=== PATIENT | male | born 1935 | race Caucasian/White ===

== ENCOUNTER 2020-07-19 11:38 | Outpatient (REF) | payer MEDICARE, BC, SELFPAY | END 2020-07-19 11:39 | disposition home or self-care (01) | LOC: HO.LAB 11:38 | PROVIDERS: PCP Family Medicine; Visit Provider Internal Medicine | DX: Z20.828 Contact with and (suspected) exposure to other viral communicable diseases (principal) | CPT/HCPCS: 87635 ==

== ENCOUNTER 2021-01-09 08:04 | Outpatient (REF) | payer MEDICARE, BC, SELFPAY ==
[2021-01-09 10:32] LABS: Alanine Aminotransferase 18 U/L (0-40); Anion Gap 14 (12-20); Blood Urea Nitrogen 20 mg/dL (9-16); Carbon Dioxide 23 mmol/L (22-29); Chloride 112 mmol/L (96-108); Estimated Glomerular Filt Rate 50; Sodium 145 mmol/L (135-145)
== END 2021-01-09 08:05 | disposition home or self-care (01) ==
LOC: HO.10HDL 08:04
PROVIDERS: Internal Medicine; Visit Provider Family Medicine
DX: I10 Essential (primary) hypertension (principal); E78.00 Pure hypercholesterolemia, unspecified; Z79.899 Other long term (current) drug therapy
CPT/HCPCS: 36415; 80051; 82550; 82565; 84460; 84520

== ENCOUNTER 2021-05-18 | Outpatient (REF) | payer MEDICARE, BC, SELFPAY ==
[2021-05-22 14:57] LABS: OBS Date 2 NO DATE GIVEN; OBS Date 3 NO DATE GIVEN; OBS Int Ctl Valid YES; OBS1 NEGATIVE (NEGATIVE); OBS2 NEGATIVE (NEGATIVE); OBS3 NEGATIVE (NEGATIVE)
== END 2021-05-18 00:01 | disposition home or self-care (01) ==
LOC: HO.LNP
PROVIDERS: Visit Provider Family Medicine
DX: K92.1 Melena (principal)
CPT/HCPCS: 82270

== ENCOUNTER 2021-05-22 14:42 | Outpatient (REF) | payer MEDICARE, BC, SELFPAY | END 2021-05-22 14:43 | disposition home or self-care (01) | LOC: HO.LNP 14:42 | PROVIDERS: Visit Provider Family Medicine | DX: Z13.89 Encounter for screening for other disorder (principal) ==

== ENCOUNTER 2021-06-16 13:56 | Outpatient (REF) | payer MEDICARE, BC, SELFPAY ==
--- NOTE | ~2021-06-16 | XR_ITS ---
EXAMINATION: XR ABDOMEN COMPLETE CLINICAL INDICATION: Flat and upright epigastric pain. COMPARISON: None TECHNIQUE: 2 views of the abdomen. FINDINGS: There is scattered gas seen throughout the colon with prominent small bowel loops air-fluid levels in the left upper epigastric region. There is no organomegaly. No bony abnormality seen. There is evidence of previous cholecystectomy. XR/XR abdomen min 2V IMPRESSION: Mild prominence of small bowel loops in left epigastric region without distention. It is nonspecific. The colon is unremarkable. There is no free air.
[2021-06-16 14:32] LABS: Basophils Percent Auto 0.2 % (0-2); Eosinophils Percent Auto 0.2 % (0-4); Hemoglobin 13.8 g/dl (14.0-18.0); Imm Gran Abs Auto 0.02 X10*3/uL (0.00-0.03); Imm Gran Pct Auto 0.2 % (0.0-0.4); MANUAL DIFF FLAG SCAN; PLT CLUMP 1; Red Cell Distribution Width 12.5 % (11.0-16.0); SCAN SMEAR FLAG 1
[2021-06-16 14:34] LABS: Hematocrit 46.3 % (42-52); Lymphocytes Percent Auto 7.6 % (20-40); Mean Corpuscular HGB Conc 29.8 g/dl (31.0-36.0); Mean Corpuscular Hemoglobin 35.5 pg (27.0-33.0); Mean Platelet Volume 10.7 fL (9.4-12.4); Monocytes Absolute Auto 1.9 X10*3/uL (0.1-1.2); Monocytes Percent Auto 14.9 % (2-11); Neutrophils Absolute Auto 9.7 X10*3/uL (2.0-8.3); Neutrophils Percent Auto 76.9 % (45-73); Platelet Count 145 X10*3/uL (160-400); Red Blood Count 3.89 X10*6/uL (4.60-5.80); White Blood Count 12.6 X10*3/uL (4.8-10.8)
[2021-06-16 15:12] LABS: SLIDE REVIEW VERIFIED
== END 2021-06-16 13:57 | disposition home or self-care (01) ==
LOC: HO.LAB 13:56
PROVIDERS: PCP Family Medicine; Visit Provider Family Medicine
DX: R10.13 Epigastric pain (principal); K21.9 Gastro-esophageal reflux disease without esophagitis
CPT/HCPCS: 36415; 74019; 85025

== ENCOUNTER 2021-06-20 10:55 | Outpatient (REF) | payer MEDICARE, BC, SELFPAY ==
--- NOTE | ~2021-06-20 | FL_ITS ---
EXAMINATION: XR GI SERIES CLINICAL INFORMATION: Gastroesophageal reflux and epigastric pain COMPARISON: Previous KUB 06/16/[address] IVP most recent February 2018 TECHNIQUE: Upper GI was performed using thin and thick barium and effervescent granules. FINDINGS: There is abnormal orientation of the stomach likely related to previous surgery/reduction of the large gastric hernia. No ulcer, mass, stricture or fold thickening is seen. There is severe gastroesophageal reflux. There may be a small paraesophageal hernia. FLUOROSCOPY TIME: 2 minutes DOSE AREA PRODUCT: 18 yusuf per centimeter squared. 29 saved fluoroscopic images. FL/FL upper GI series IMPRESSION: Severe gastroesophageal reflux. Question small paraesophageal hernia. Abnormal orientation of the stomach likely related to previous surgery.
== END 2021-06-20 10:56 | disposition home or self-care (01) ==
LOC: HO.XRAY 10:55
PROVIDERS: PCP Family Medicine; Visit Provider Family Medicine
DX: R10.13 Epigastric pain (principal); K21.9 Gastro-esophageal reflux disease without esophagitis
CPT/HCPCS: 74240

== ENCOUNTER 2021-07-25 09:54 | Outpatient (REF) | payer MEDICARE, BC, SELFPAY ==
[2021-07-25 10:48] LABS: Alanine Aminotransferase 18 U/L (0-40); Anion Gap 8 (12-20); Blood Urea Nitrogen 20 mg/dL (9-16); Carbon Dioxide 28 mmol/L (22-29); Chloride 111 mmol/L (96-108); Estimated Glomerular Filt Rate 45; Potassium 4.1 mmol/L (3.3-5.1); Sodium 143 mmol/L (135-145)
[2021-07-25 10:53] LABS: Uric Acid 6.6 mg/dL (3.4-7.0)
== END 2021-07-25 09:55 | disposition home or self-care (01) ==
LOC: HO.LAB 09:54
PROVIDERS: PCP Family Medicine; Visit Provider Family Medicine
DX: I10 Essential (primary) hypertension (principal); E78.00 Pure hypercholesterolemia, unspecified; M10.9 Gout, unspecified; Z79.899 Other long term (current) drug therapy
CPT/HCPCS: 36415; 80051; 82550; 82565; 84460; 84520; 84550

== ENCOUNTER 2021-11-20 09:39 | Outpatient (REF) | payer MEDICARE, BC, SELFPAY ==
[2021-11-20 10:06] LABS: MANUAL DIFF FLAG NO
[2021-11-20 10:14] LABS: Basophils Percent Auto 0.4 % (0-2); Eosinophils Absolute Auto 0.1 X10*3/uL (0.0-0.4); Eosinophils Percent Auto 2.4 % (0-4); Hematocrit 42.4 % (42.0-52.0); Hemoglobin 14.1 g/dl (14.0-18.0); Imm Gran Abs Auto 0.02 X10*3/uL (0.00-0.03); Imm Gran Pct Auto 0.4 % (0.0-0.4); Lymphocytes Absolute Auto 1.2 X10*3/uL (1.2-4.9); Lymphocytes Percent Auto 22.5 % (20-40); Mean Corpuscular HGB Conc 33.3 g/dl (31.0-36.0); Mean Corpuscular Hemoglobin 32.4 pg (27.0-33.0); Mean Corpuscular Volume 97.5 fL (80.0-98.0); Mean Platelet Volume 11.4 fL (9.4-12.4); Monocytes Absolute Auto 0.6 X10*3/uL (0.1-1.2); Monocytes Percent Auto 11.6 % (2-11); Neutrophils Absolute Auto 3.2 x10*3/uL (2.0-8.3); Neutrophils Percent Auto 62.7 % (45-73); Platelet Count 173 X10*3/uL (160-400); Red Blood Count 4.35 X10*6/uL (4.60-5.80); Red Cell Distribution Width 12.4 % (11.0-16.0); White Blood Count 5.1 X10*3/uL (4.8-10.8)
[2021-11-20 10:54] LABS: Erythrocyte Sedimentation Rate 2 MM/HR (0-15)
[2021-11-20 11:06] LABS: Alanine Aminotransferase 29 U/L (0-40); Anion Gap 11 (12-20); Aspartate Amino Transferase 35 U/L (5-37); Blood Urea Nitrogen 19 mg/dL (9-16); Carbon Dioxide 24 mmol/L (22-29); Chloride 112 mmol/L (96-108); Estimated Glomerular Filt Rate 55; Potassium 4.4 mmol/L (3.3-5.1); Sodium 143 mmol/L (135-145)
[2021-11-20 11:41] LABS: Folate 9.2 ng/mL (> or = 4.0); Vitamin B12 384 pg/mL (200-900)
== END 2021-11-20 09:40 | disposition home or self-care (01) ==
LOC: HO.10HDL 09:39
PROVIDERS: Visit Provider Family Medicine
DX: I10 Essential (primary) hypertension (principal); D45 Polycythemia vera; E78.00 Pure hypercholesterolemia, unspecified; Z79.899 Other long term (current) drug therapy
CPT/HCPCS: 36415; 80051; 82565; 82607; 82746; 84450; 84460; 84520; 85025; 85652

== ENCOUNTER 2022-05-01 10:36 | Outpatient (REF) | payer MEDICARE, BC, SELFPAY ==
[2022-05-01 12:13] LABS: Alanine Aminotransferase 17 U/L (0-40); Anion Gap 14 (12-20); Aspartate Amino Transferase 22 U/L (5-37); Blood Urea Nitrogen 19 mg/dL (9-16); Carbon Dioxide 24 mmol/L (22-29); Chloride 109 mmol/L (96-108); Estimated Glomerular Filt Rate 53; Potassium 4.5 mmol/L (3.3-5.1); Sodium 142 mmol/L (135-145)
== END 2022-05-01 10:37 | disposition home or self-care (01) ==
LOC: HO.LAB 10:36
PROVIDERS: PCP Family Medicine; Visit Provider Family Medicine
DX: I10 Essential (primary) hypertension (principal); E78.00 Pure hypercholesterolemia, unspecified; Z79.899 Other long term (current) drug therapy
CPT/HCPCS: 36415; 80051; 82550; 82565; 84450; 84460; 84520

== ENCOUNTER 2022-10-09 10:55 | Outpatient (REF) | payer MEDICARE, BC, SELFPAY ==
[2022-10-09 11:17] LABS: MANUAL DIFF FLAG NO
[2022-10-09 12:00] LABS: Basophils Percent Auto 0.7 % (0-2); Eosinophils Absolute Auto 0.2 X10*3/uL (0.0-0.4); Eosinophils Percent Auto 2.6 % (0-4); Hematocrit 41.2 % (42.0-52.0); Hemoglobin 14.1 g/dl (14.0-18.0); Imm Gran Abs Auto 0.01 X10*3/uL (0.00-0.03); Imm Gran Pct Auto 0.2 % (0.0-0.4); Lymphocytes Absolute Auto 1.2 X10*3/uL (1.2-4.9); Lymphocytes Percent Auto 20.9 % (20-40); Mean Corpuscular HGB Conc 34.2 g/dl (31.0-36.0); Mean Corpuscular Hemoglobin 33.4 pg (27.0-33.0); Mean Corpuscular Volume 97.6 fL (80.0-98.0); Mean Platelet Volume 11.2 fL (9.4-12.4); Monocytes Absolute Auto 0.9 X10*3/uL (0.1-1.2); Monocytes Percent Auto 15.3 % (2-11); Neutrophils Absolute Auto 3.6 x10*3/uL (2.0-8.3); Neutrophils Percent Auto 60.3 % (45-73); Platelet Count 174 X10*3/uL (160-400); Red Blood Count 4.22 X10*6/uL (4.60-5.80); Red Cell Distribution Width 12.4 % (11.0-16.0); White Blood Count 5.9 X10*3/uL (4.8-10.8)
[2022-10-09 14:18] LABS: Alanine Aminotransferase 14 U/L (0-40); Anion Gap 11 (12-20); Aspartate Amino Transferase 21 U/L (5-37); Blood Urea Nitrogen 16 mg/dL (9-16); Carbon Dioxide 25 mmol/L (22-29); Chloride 111 mmol/L (96-108); Estimated Glomerular Filt Rate 45; Potassium 4.2 mmol/L (3.3-5.1); Sodium 143 mmol/L (135-145)
== END 2022-10-09 10:56 | disposition home or self-care (01) ==
LOC: HO.LAB 10:55
PROVIDERS: PCP Family Medicine; Visit Provider Family Medicine
DX: Z13.89 Encounter for screening for other disorder (principal)
CPT/HCPCS: 36415; 80051; 82550; 82565; 84450; 84460; 84520; 85025

== ENCOUNTER 2023-04-03 12:11 | Outpatient (REF) | payer MEDICARE, BC, SELFPAY ==
[2023-04-03 14:15] LABS: Alanine Aminotransferase 16 U/L (0-40); Anion Gap 12 (12-20); Aspartate Amino Transferase 21 U/L (5-37); Blood Urea Nitrogen 25 mg/dL (9-16); Carbon Dioxide 22 mmol/L (22-29); Chloride 113 mmol/L (96-108); Estimated Glomerular Filt Rate 52; Potassium 4.1 mmol/L (3.3-5.1); Sodium 143 mmol/L (135-145)
== END 2023-04-03 12:12 | disposition home or self-care (01) ==
LOC: HO.LAB 12:11
PROVIDERS: PCP Family Medicine; Visit Provider Family Medicine
DX: I10 Essential (primary) hypertension (principal); E78.00 Pure hypercholesterolemia, unspecified; Z79.899 Other long term (current) drug therapy
CPT/HCPCS: 36415; 80051; 82550; 82565; 84450; 84460; 84520

== ENCOUNTER 2023-08-01 07:12 | Outpatient (REF) | payer MEDICARE, BC, SELFPAY ==
[2023-08-01 08:38] LABS: Cholesterol 134 mg/dL (<200); Glucose Fasting 111 mg/dL (60-99); HDL Cholesterol 42 mg/dL (>40); LDL Cholesterol Calculated 76 mg/dL (<100); Triglycerides 83 mg/dL (<150)
[2023-08-01 09:02] LABS: Prostate Specific Antigen 1.92 ng/mL (<0.05-4.0)
== END 2023-08-01 07:13 | disposition home or self-care (01) ==
LOC: HO.LAB 07:12
PROVIDERS: PCP Family Medicine; Visit Provider Family Medicine
DX: E78.00 Pure hypercholesterolemia, unspecified (principal); R73.9 Hyperglycemia, unspecified; N40.0 Benign prostatic hyperplasia without lower urinary tract symptoms; Z12.5 Encounter for screening for malignant neoplasm of prostate
CPT/HCPCS: 36415; 80061; 82947; 84153

== ENCOUNTER 2023-12-04 07:33 | Outpatient (REF) | payer MEDICARE, BC, SELFPAY ==
[2023-12-04 08:02] LABS: Estimated Average Glucose 111 mg/dL; Hemoglobin A1c % 5.5 % (<6.0)
[2023-12-04 08:23] LABS: Alanine Aminotransferase 24 U/L (0-40); Anion Gap 13 (12-20); Aspartate Amino Transferase 22 U/L (5-37); Blood Urea Nitrogen 21 mg/dL (9-16); Carbon Dioxide 28 mmol/L (22-29); Chloride 108 mmol/L (96-108); Estimated Glomerular Filt Rate 49; Glucose Fasting 96 mg/dL (60-99); Sodium 145 mmol/L (135-145)
== END 2023-12-04 07:34 | disposition home or self-care (01) ==
LOC: HO.LAB 07:33
PROVIDERS: PCP Family Medicine; Visit Provider Family Medicine
DX: I10 Essential (primary) hypertension (principal); E78.00 Pure hypercholesterolemia, unspecified; R73.9 Hyperglycemia, unspecified; Z79.899 Other long term (current) drug therapy
CPT/HCPCS: 36415; 80051; 82550; 82565; 82947; 83036; 84450; 84460; 84520

== ENCOUNTER 2024-06-12 13:08 | Outpatient (REF) | payer MEDICARE, BC, SELFPAY ==
[2024-06-12 14:29] LABS: Anion Gap 9 (12-20); Blood Urea Nitrogen 25 mg/dL (9-16); Carbon Dioxide 27 mmol/L (22-29); Chloride 111 mmol/L (96-108); Estimated Glomerular Filt Rate 43; Magnesium 2.3 mg/dL (1.6-2.6); Sodium 143 mmol/L (135-145)
== END 2024-06-12 13:09 | disposition home or self-care (01) ==
LOC: HO.LAB 13:08
PROVIDERS: PCP Family Medicine; Visit Provider Family Medicine
DX: I10 Essential (primary) hypertension (principal)
CPT/HCPCS: 36415; 80051; 82565; 83735; 84520

== ENCOUNTER 2025-01-08 13:06 | Outpatient (REF) | payer MEDICARE, BC, SELFPAY ==
--- OUTSIDE RECORDS SUMMARY | 2025-01-08 13:38 | XMS_ITS ---
Author Organization [facility] [place] Address [address] [place] [address] Care Team Providers Care Civil Drafting Technician Name Role Phone Eric Mohan MD Primary Care Provider Adam Daugherty [phone] REASON FOR VISIT Skin problem Medications Medication SIG (Take, Route, Frequency, Duration) Notes Start Date End Date Status amLODIPine Besylate 2.5 MG TAKE 1 TABLET BY MOUTH EVERYDAY AT BEDTIME Oral for 90 Days Active Pravastatin Sodium 20 MG Oral for 90 Days Active Atenolol 25 MG TAKE 1 TABLET BY GEMA TH EVERY DAY DIRECTED Oral for 90 Days Active Social History Tobacco Use: Social History Observation Description Date Details (start date - stop date) Former Smoker NA - NA Tobacco Use/Smoking Question Answer Notes Are you a: former smoker Additional Findings: Tobacco Non-User Current no n-smoker Alcohol Screen Question Answer Notes Did you have a drink containing alcohol in the p ast year? No Points 0 Interpretation Negative Problems Problem Type SNOMED Code ICD Code Onset Dates Problem Status W/U Status Risk Notes Problem Acquired hallux valgus (88643934) Hallux valgus (acquired), left foot (M20.12) Active confirmed Problem Acquired hallux valgus (69423591) Hallux valgus (acquired), right foot (M20.11) Active confirmed Vital Signs Height 5 ft 11 in in 01/08/2024 Weight 174 lbs lbs 01/08/2024 BMI 24.27 kg/m2 01/08/2024 Encounters Encounter Location Date Provider Diagnosis [facility] [address] [place] [address] 01/08/2024 Adam Bernal Skin disease L98.9 ; Xerosis cutis L85.3 ; Hallux valgus (acquired), left foot M20.12 and Hallux valgus (acquired), right foot M20.11 Assessments Encounter Date Diagnosis (ICD Code) Assessment Notes Treatment Notes Treatment Clinical Notes Section Notes 01/08/2024 Skin disease (ICD-10 - L98.9) 01/08/2024 Xerosis cutis (ICD-10 - L85.3) 01/08/2024 Hallux valgus (acquired), left foot (ICD-10 - M20.12) 01/08/2024 Hallux valgus (acquired), right foot (ICD-10 - M20.11) Plan Of Treatment Next Appt Details Follow Up: prn, Reason: Progress Notes * David VALLESDOB: (88 yo M)Acc No.[id number]:01/08/2024 Progress Notes Patient:?David Valles Provider:?Adam Bernal DPM :1935???Age:88 Y???Sex:Male [place] e:01/08/2024 [facility] [place] [place] [address] Pcp:Eric Mohan MD Subjective: * Chief Complaints: * ???Skin problem * HPI: ???Skin problems:?Nature:?discolored, dryness.?Location:?B/L , Midfoot, Heel/Rearfoot, Ankle, Forefoot.?Duration:?several years.?Onset/Cause:?unknown.?Course:?worse.?Aggravated by:?no aggrevating factors.?Treatments:?self care.?Severity/Quality:?moderate.? * ROS:?General/Constitutional:?Nausea?denies.?Vomiting?denies.?Hunger Thirst?denies.?Loss appetite?denies.?Chills?denies.?Fatigue?denies.?Fever?denies.?Night Sweats?denies.?Unexplained weight loss?denies.?Unexplained weight gain?denies.?HEENTM:?Dentures?denies.?Dizziness?denies.?Glasses/contacts?denies.?Retinopathy?de nies.?Blurred/double vision?denies.?TMJ?denies.?Discharge/drainage?denies.?Implants?denies.?Sore throat?denies.?Dental implants?denies.?Hard of hearing ?denies.?Difficulty chewing/swallowing/speaking?denies.?Nose bleeds?denies.?Sore mouth?denies.?Respiratory:?On Oxygen?denies.?Pneumonia/pleurisy?denies.?Bronchitis?denies.?Emphysema?denies.?C oughing?denies.?Cough blood?denies.?Shortness of breath?denies.?Wheezing?denies.?Cardiovascular:?Pacemaker?denies.?MVP?denies.?WPW?denies.?CHF?denies.?Heart attack?denies.?Septal defect?denies.?Rapid beat?denies.?Chest pain ?denies.?Atrial Fib.?denies.?Murmur/Palpitations?denies.?Gastrointestinal:?Hemorrhoids?, admits.?Stomach/Abdominal pain?denies.?Dark blood stool?denies.?Irritable bowel ?denies.?Constipation?denies.?Diarrhea?denies.?Hematology:?Swelling?denies.?Clots?denies.?Varicose Veins?denies.?Bruising?denies.?Bleeding problem?denies.?Genitourinary:?Blood urine?denies.?Frequent/Painfu/urination/bladder control?denies.?Kidney stones?denies.?Infection (UTI)?denies.?Nephropathy?denies.?sex trans dis (STD)?denies.?Prostate?denies.?Musculoskeletal:?Hammertoes?denies.?Bunions?denies.?Back Pain?denies.?Muscle Cramps/ Resting?denies.?Muscle cramps / walking?denies.?Generalized aches and pains?denies.?Weakness?denies.?Integ.:?Max?denies.?Scars?denies.?Corns/calluses?denies.?Ingrown nails?denies.?Painful nails?denies.?Open Sores?denies.?Rashes?denies.?Neurologic:?Difficulty sleeping?denies.?Brain disorder?denies.?Numbness?denies.?Balance trouble?denies.?Confusion?denies.?Fainting/blackouts?denies.?Tingling?denies.?Tr emors?denies.? * Medical History:? * Surgical History:?Yohan Gee er 06/2005Esophageal 01/2019 * Hospitalization/Major Diagno stic Procedure:?No Hospitalization History. * Family History:?Mother: dece ased, diagnosed with Other malignant neoplasm of unspecified site.?Father: , diagnosed with Unspecified essential hypertension, Unspecified heart disease.? * Social History:?Tobacco Use:?Tobacco Use/Smoking?Are you a:?former smoker ?Additional Findings: Tobacco Non-User?Current non-smoker ???Drugs/Alcohol:?Drugs?Have you used drugs other than those for medical reasons in the past 12 months??No ?Alcohol Screen?Did you have a drink containing alcohol in the past year??No ?Points?0 ?Interpretation?Negative ???Miscellaneous:?Marital status: . 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 * Medications:?TakingAtenolol 25 MG Tablet TAKE 1 TABLET BY MOUTH EVERY DAY DIRECTED Oral Pravastatin Sodium 20 MG Tablet Oral amLODIPine Besylate 2.5 MG Tablet TAKE 1 TABLET BY MOUTH EVERYDAY AT BEDTIME Oral Medication List reviewed and reconciled with the patientTaking Atenolol 25 MG Tablet TAKE 1 TABLET BY MOUTH EVERY DAY DIRECTED Oral Taking Pravastatin Sodium 20 MG Tablet Oral Taking amLODIPine Besylate 2.5 MG Tablet TAKE 1 TABLET BY MOUTH EVERYDAY AT BEDTIME Oral Medication List reviewed and reconciled with the patient * Allergies:?yes[Allergies Keerthi ified] Objective: * Vitals:?Ht: 5 ft 11 in, Wt: 174 lbs, BMI: 24.27, Shoe size: 10., Ht-cm: 180.34 cm, Wt-k.93 kg. * Examination: ???General Examination: ?GENERAL APPEARANCE:?pleasant, alert, well nourished, well developed, well hydrated, with good attention to hygene/body habitus, and in no acute distress.?ORIENTED:?person,place, and time.?Neurological: ?SENSORY:?neurological exam reveals intact sensorium, pain sensation normal, vibration sensation intact, pinprick sensation is normal in the lower extremities, anesthesia, burning, tingling, B/L.?Vascular: ?DP PULSES:?2/4, B/L.?PT PULSES:?2/4, B/L.?CAPILLARY FILL TIME:?3 secs. per digit. B/L.?SKIN TEMPERTURE GRADIENT OF THE LOWER EXTERMITIES:?normal, B/L.?HAIR GROWTH/TEXTURE/ELASTICITY/TURGOR:?normal, B/L.?PIGMENTATION:?normal, B/L.?EDEMA:?absent, B/L.?TELANGECTASIA:?absent, B/L.?Dermatologic: ?SKIN FINDINGS:? Skin shows sign(s) of, dryness, scaling, in a stocking fashion, no fissure(s) present, B/L.?Orthopedic: ?MUSCLE STRENGTH:?5/5 all groups in a symmetrical fashion , B/L.?BUNION:? Medially prominent 1st MPJ, B/L, Lateral tracking 1st MPJ incompletely reducible.?DIGITAL DEFORMITIES:? Digital contracture, PIPJ, 2-5 B/L, incompl- reducible with WB, or to push-up test, no over, nor underlapping.? 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 Skin disease - L98.9 (Primary)?3.?Hallux valgus (acquired), left foot - M20.12?4.?Hallux valgus (acquired), right foot - M20.11? Plan: * Treatment: * Procedure Codes:? * Preventive Medicine:? ??Counseling:?Discussion:?-03: Office or other outpatient visit for the evaluation and management of a new patient, which required a medically appropriate history and/or examination and LOW level of DECISION MAKING for: 1 STABLE ACUTE UNCOMPLICATED PROBLEM, 2 OR MORE MINOR PROBLEMS, OR 1 STABLE CHRONIC PROBLEM, THAT POSE(S) A LOW RISK FOR MORBIDITY/MORTALITY. The visit on the day of the encounter encompassed interpreting the data and educating the patient as to the nature of their condition, treatment options available according to their individual PMH, meds, allergies, and overall health/living conditions, as well as any potential risks or complications that may occur from a failure to adhere to, and participate in, the recommended course of therapy. The discussion included a complete verbal, and/or written explanation of the examination results, any x-rays taken, the proposed diagnosis, and outline of the treatment plan. A schedule for future care needs was also explained. The patient verbalized an understanding of the instructions at this time and agreed to be an active participant in their treatment. If the patient should think of any questions or concerns after the visit, I have encouraged the patient to call the office.?Xerosis:?The patient was counseled on the diagnosis, potential etiologies, and treatment options for their skin condition. We discussed the risks and benefits of each option from performing no treatment, to utilizing OTC topical skin creams/ointments, to utilizing prescription topical creams/ointments, to utilizing customized compounded topical medications and use of nocturnal occlusion with any/all previously detailed therapies. We discussed the advantages and disadvantages of each possible treatment and importance for adherence to all the recommended therapies for optimum success and avoid potential complications such as open sore/infection/possible hospitalization. We discussed the potential effectiveness of each topical preparation as well as each ones possible side effects and/or patient medication interactions. Patient questions re: use, dosage, successful outcomes, and application consistency were reviewed and the patient verbalized that all answers were clearly understood. The patient has decided to apply Rx skin creams to their feet save the interspaces while paying special attention to the heels. Such was sent to their pharmacy at the time of visit.? * Follow Up:?prn * Images: * Sign off status: Completed true * Provider:?Adam Bernal DPM Date:? 024 Generated for Delma vasquez/Kae/eTluis danielitting on:?01/08/2025 01:38 PM EDT History and Physical Notes * HPI (History of Present Illness) Category Sub-Category Detail Notes Category Not es Skin problems Nature: discolored, dryness Location: B/L , Midfoot, Heel/ Rearfoot, Ankle, Forefoot Duration: several years Onset/Cause: unknown Course: worse Aggravated by: no aggrevating facto rs Treatments: self care Severity/Quality: moderate Examination Category Sub-Category Detail Notes Category Not es Neurological SENSORY: neurological exa m reveals intact sensorium, pain sensation normal, vibration sensation intact, pinprick sensation is normal in the lower extremities, anesthesia, burning, tingling, B/L Dermatologic SKIN FINDINGS: Skin shows sign( s) of, dryness, scaling, in a stocking fashion, no fissure(s) present, B/L Orthopedic BUNION: Medially promine nt 1st MPJ, B/L, Lateral tracking 1st MPJ incompletely reducible DIGITAL DEFORMITIES: Digital contracture , PIPJ, 2-5 B/L, incompl-reducible with WB, or to push-up test, no over, nor underlapping MUSCLE STRENGTH: 5/5 all groups in a symmetrical fashion , B/L General Examination GENERAL APPEARANCE: pleasant , alert, well nourished, well developed, well hydrated, with good attention to hygene/body habitus, and in no acute distress ORIENTED: person,place, and ti me Vascular DP PULSES (B): 2/4, B/L PT PULSES (B): 2/4, B/L CAPILLARY FILL TIME: 3 secs. per digit. B/L TEMPERTURE GRADIENT (C): normal, B/L TROPHIC CONDITION-TEXTURE/ELASTICITY/TUR GOR/HAIR GROWTH (B): normal, B/L EDEMA (C): absent, B/L TELANGECTASIA: absent, B/L PIGMENTATION: normal, B/L
--- OUTSIDE RECORDS SUMMARY | 2025-01-08 13:38 | XMS_ITS | Patient Health Record ---
Author Organization [facility] [place] Address [address] [facility] [place] [address] Care Team Providers Care Hog Buyer Name Role Phone Eric Mohan MD Primary Care Provider UnavailAdam [place] Unavailable [phone] Reason For Referral No Information Medications Medication SIG (Take, Route, Frequency, Duration) [...] Status Risk Notes Problem Acquired hallux valgus (82018606) Hallux valgus (acquired), left foot (M20.12) Active confirmed Problem Acquired hallux valgus (86257145) Hallux valgus (acquired), right foot (M20.11) Active confirmed Plan Of Treatment No Information Insurance Providers Payer Name Payer Address Payer Phone Subscriber Number Group Number Insured Name Patient Relationship to Insured Coverage Start Date Coverage End Date Medicare [facility] [address] [place] [address] [id number] David Tran Self - patient is the insured [facility] [address] [place] [address] [phone] [id number] 3 Counter, David Self - patient is the insured Medical (General) History Medical History History ICD Code Cataracts Gall bladder problems Gout Hiatal hernia Measles Mumps Chicken pox Transfusions Surgical History Surgery Date(Month/Year) Gall Bladder 06/2005 Esophageal 01/2019
--- OUTSIDE RECORDS SUMMARY | 2025-01-08 13:38 | XMS_ITS | Clinical Summary ---
Author Organization [facility] Address [address] [place] [address] Care Team Providers Care Score Caller Name Role Phone Farrukh Goode MD Primary Care Provider [phone] Allergies No known active allergies Medications PREVNAR 13 vaccine inject 0.5 milliliter intramuscularly 0 07/17/20 16 Active atenolol (TENORMIN) 25 MG tablet 10/01/19 17 Active pravastatin (PRAVACHOL) 20 MG tablet 10/01/19 17 Active aspirin enteric coated (ECOTRIN LOW STRENGTH) 81 MG EC tablet Take 81 mg by mouth daily. Active allopurinol (ZYLOPRIM) 300 MG tablet 01/01/20 18 Active indomethacin (INDOCIN) 50 MG capsule Take 50 mg by mouth 2 (two) times a day with meals. Take with meals or food to reduce stomach upset. Active Family History Medical History Relation Name Comments Heart disease Father Heart disease Mother Relation Name Status Comments Father Mother Social History Tobacco Use Types Packs/Day Years Used Date Smoking Tobacco: Never Smokeless Tobacco: Never Alcohol Use Standard Drinks/Week Comments Yes 0 (1 standard drink = 0.6 oz pur e alcohol) social Sex and Gender Information Value Date Recorded Sex Assigned at Not on file Legal Sex Male 9:35 AM EDT Gender Identity Not on file Sexual Orientation Not on file Last Filed Vital Signs Vital Sign Reading Time Taken Comments Blood Pressure - - Pulse - - Temperature - - Respiratory Rate 16 03/20/2018 2:01 PM EDT Oxygen Saturation - - Inhaled Oxygen Concentration - - Weight 85.3 kg (188 lb) 03/20/2018 2:01 PM EDT Height 180.3 cm (5' 11 ) 03/20/2018 2:01 PM EDT Body Mass Index 26.22 03/20/2018 2:01 PM EDT Plan of Treatment Health Maintenance Due Date Last Done Comments DTaP/Tdap/Td Vaccines (1 - Tdap) 1954 Pneumococcal Vaccines 50+ (1 of 1 - PCV) 12/01/1987 Zoster (Shingles) Vaccine (1 of 2) 12/01/1987 RSV Vaccine 60 years and old er and Patients (1 - 1-dose 75+ series) 2012 Influenza Vaccine 04/23/2024 COVID-19 Vaccine (1 - 2023-2 5 season) 2024 Hepatitis B Vaccines Aged Out No long er eligible based on patient's age to complete this topic Insurance MEDICARE PART A & B [place] [id number] Care Teams Score Caller Relationship Specialty Start Date End Date Farrukh Goode MD PCP - General 09/03/16
== END 2025-01-08 13:07 | disposition home or self-care (01) ==
LOC: HO.SH 13:06
PROVIDERS: Visit Provider Family Medicine
DX: Z01.118 Encounter for examination of ears and hearing with other abnormal findings (principal); H90.3 Sensorineural hearing loss, bilateral
CPT/HCPCS: 92557; 92567

== ENCOUNTER 2025-02-18 09:48 | Outpatient (REF) | payer MEDICARE, SELFPAY ==
--- OUTSIDE RECORDS SUMMARY | 2025-02-18 10:11 | XMS_ITS | Patient Health Record ---
Author Organization [facility] [place] Address [address] [facility] [place] [address] Care Team Providers Care Raschel Knitting Machine Operator Name Role Phone Eric Mohan MD Primary Care Provider UnavailAdam Lima Unavailable [phone] Reason For Referral No Information Medications Medication [...] Status Risk Notes Problem Acquired hallux valgus (45941404) Hallux valgus (acquired), left foot (M20.12) Active confirmed Problem Hallux valgus (acquired), right foot (M20.11) Active confirmed Plan Of Treatment No Information Insurance Providers Payer Name Payer Address Payer Phone Subscriber Number Group Number Insured Name Patient Relationship to Insured Coverage Start Date Coverage End Date Medicare [facility] [address] [place] [address] [id number] David Tran Self - patient is the insured [facility] [address] [place], [place] [address] [id number] 3 Counter, David Self - patient is the insured Medical (General) History Medical History History ICD Code Cataracts Gall bladder problems Gout Hiatal hernia Measles Mumps Chicken pox Transfusions Surgical History Surgery Date(Month/Year) Gall Bladder 06/2005 Esophageal 01/2019
[2025-02-18 11:26] LABS: Alanine Aminotransferase 18 U/L (0-40); Anion Gap 9 (12-20); Aspartate Amino Transferase 25 U/L (5-37); Blood Urea Nitrogen 24 mg/dL (9-16); Carbon Dioxide 27 mmol/L (22-29); Chloride 111 mmol/L (96-108); Estimated Glomerular Filt Rate 54; Potassium 4.3 mmol/L (3.3-5.1); Sodium 143 mmol/L (135-145)
== END 2025-02-18 09:49 | disposition home or self-care (01) ==
LOC: HO.LAB 09:48
PROVIDERS: PCP Family Medicine; Visit Provider Family Medicine
DX: I10 Essential (primary) hypertension (principal); E78.00 Pure hypercholesterolemia, unspecified; Z79.899 Other long term (current) drug therapy
CPT/HCPCS: 36415; 80051; 82550; 82565; 84450; 84460; 84520

== ENCOUNTER 2025-06-02 10:07 | Outpatient (AMB) | payer MEDICARE, SELFPAY ==
--- NOTE | 2025-06-02 10:10 | A.OFFPC_ITS ---
Vital Signs 06/02/25 10:26 Height 5 ft 10 in Weight 171 lb BMI 24.5 BP 102/66 Blood Pressure Location Lt brachial Position Sitting Respiration 18 Pulse 62 Pulse Source Pulse Oximeter Temp 97.9 F Temp Source Temporal Artery Scan Pulse Oximetry (%) 98 Oxygen Delivery Method Room Air Intake Visit Reasons: Routine / Dr piper Fermenting Cellar Dropper Required: No Accompanied by: Self / Same As Patient Allergies No Known Allergies Allergy (Verified 06/02/25 10:13) Tobacco use date assessed: 06/02/25 Fall risk assessment: No Falls in past year Last assessed Fall Risk: 06/02/25 Dental Screening Did you have a dental visit in the last 12 months?: Yes HPI HPI Comments History of Present Illness Details The patient is an 89-year-old male presenting with concerns regarding gastrointestinal health, particularly symptoms suggestive of gastroesophageal reflux disease (GERD) and associated complications. The patient had a history of a hiatal hernia, diagnosed in 1991, which eventually required surgical interv ention in 2019 after his stomach was found to have migrated into his chest. This condition led to emergency surgery after an incident of severe vomiting and was followed by a longer-term corrective surgical procedure. Following the surgeries, he has experienced an improvement in his condition for about five years, with recommendations to eat smaller, slower meals and avoid dense foods such as steak. However, over the past month, the patient reports the recurrence of symptoms consistent with GERD, including chest discomfort and regurgitation, particularly with certain foods. He has noted a reduced ability to eat larger meals and reports an early sensation of fullness. The patient also mentions belching and acid reflux as part of his symptomatology. 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 He denies current alcohol use and ceased smoking long ago. 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 1. Little interest or pleasure in doing things: not at all 2. Feeling down, depressed, or hopeless: several days 3. Trouble falling or staying asleep, or sleeping too much: not at all 4. Feeling tired or having little energy: not at all 5. Poor appetite or overeating: not at all 6. Feeling bad about yourself - or that you are a failure or have let yourself or your family down: not at all 7. Trouble concentrating on things, such as reading the newspaper or watching television: not at all 8. Moving or speaking so slowly that other people could have noticed. Or the opposite - being so fidgety or restless that you have been moving around a lot more than usual: not at all 9. Thoughts that you would be better off or of hurting yourself in some way: not at all Total score: 1 Depression Screening Interpretation: Negative Depression Screening Done: Yes 67995 - PHQ-9 Billing: Yes Source: Developed by Drs. Harpal Interiano, Trina Woo, Jamie Roland and colleagues, with an educational efrain from [employer]. Thrive Questionnaire Date Thrive assessed: 06/02/25 I am a: Patient What is your living situation today?: I have a steady place to live Within the past 12 months, did the food you bought not last and you didn't have the money to get more?: Never true Within the past 12 months, did you worry whether your food would run out before you got money to buy more?: Never true Do you have trouble paying for medicines?: No Do you have trouble getting transportation to medical appointments?: No Do you have trouble paying your heating and electricity bill?: No Do you have trouble taking care of your child, family member or friend?: No Do you have trouble with day-to-day activities such as bathing, preparing meals, shopping, managing finances, etc.?: No Are you currently unemployed and looking for a job?: No Are you interested in more education?: No THRIVE Score: 0 AUDIT C Alcohol Use Questionnaire (AUDIT-C) 1. How often do you have a drink containing alcohol?: Never 3. How often do you have six or more drinks on one occasion?: Never Total Score: 0 Score Reviewed/Action Taken: Yes VINITA-7 AMB Questionnaire VINITA-7 Date VINITA - 7 assessed: 06/02/25 Feeling nervous, anxious, or on edge: 0 = Not at all Not being able to stop or control worryin = Not at all Worrying too much about different things: 0 = Not at all Trouble relaxin = Not at all Being so restless that it is hard to sit still: 0 = Not at all Becoming easily annoyed or irritable: 0 = Not at all Feeling afraid as if something awful might happen: 0 = Not at all Total VINITA-7 score (0-4 normal; 5-9 mild; 10-14 moderate; 15-21 severe): 0 Source: Developed by Drs. Harpal Interiano, Trina Woo, Jamie Roland and colleagues, with an educational efrain from [employer]. VINITA-7 Assessment Billing VINITA-7 Assessment Tool: VINITA-7 Assessment 83270 Review of Systems Const Details: - Gastrointestinal: Reports belching, reflux, early satiety, and reduced ability to eat large meals - Chest: Reports discomfort - Weight: Reports a recent loss All systems reviewed & are unremarkable as reviewed in HPI except as above Physical exam (Primary Care) Vital Signs: Last Vital Signs Temp 97.9 F 06/02/25 10:26 Pulse 62 06/02/25 10:26 Resp 18 06/02/25 10:26 BP 102/66 06/02/25 10:26 Pulse Ox 98 06/02/25 10:26 Oxygen Delivery Method Room Air 06/02/25 10:26 BMI result Body Mass Index 24.5 Tobacco/Smoking Status: Tobacco use Status Tobacco use date assessed 06/02/25 06/02/25 10:29 Patient Tobacco Use Status Former Tobacco user 06/02/25 10:29 Tobacco use type Cigarette 06/02/25 10:29 e-Cigarette/Vaping Use Never Used 06/02/25 10:29 Depression Screening Interpretation: Negative Const Other: General: +Alert and oriented, Well nourished, No acute distress. Eye: Pupils are equal, round and reactive to light, Intact accommodation, Extraocular movements are intact, Normal conjunctiva, Vision unchanged. HENT: Normocephalic, Atraumatic, Tympanic membranes are clear, Normal hearing, Oral mucosa is moist, No pharyngeal erythema, Ear canals patent. Respiratory: Lungs CTA bilaterally, No wheeze, Respirations are non-labored. Cardiovascular: Regular rate, Regular rhythm, S1 auscultated, S2 auscultated, No murmur, Good pulses equal in all extremities, Normal peripheral perfusion, No edema. Gastrointestinal: Soft, Non-tender, Non-distended, Normal bowel sounds, No organomegaly. Musculoskeletal: Normal range of motion, Normal strength, No tenderness, No swelling, No deformity, Normal gait. Integumentary: Warm, Dry, [place], Intact. Neurologic: Alert, Oriented, Normal sensory, Normal motor function, No focal defects, Cranial Nerves II-XII are grossly intact, Normal deep tendon reflexes. Psychiatric: Cooperative, Appropriate mood & affect, Normal judgment, Mood is good, though still battling some emotional distress related to 's condition. Coding Level of Care Code New Pt Level 4 (91477) Diagnoses Hypertension, unspecified type I10 Hypertension type: unspecified Hiatal hernia K44.9 Additional Codes PHQ-9 - 31463 - PHQ-9 Billing: Yes ([id number]) VINITA-7 Assessment Billing - VINITA-7 Assessment Tool: VINITA-7 Assessment 61269 ([id number]) Assessment & Plan Assessment & Plan (1) Hypertension: Comment: - Continue with Amlodipine and Atenolol as prescribed - Monitor blood pressure regularly - well controlled in clinic today Code(s): I10 - Essential (primary) hypertension Category: Medical Qualifiers: Hypertension type: unspecified Qualified Code(s): I10 - Essential (p rimary) hypertension (2) Hiatal hernia: Comment: Previously underwent surgical intervention in 2019 for hiatal hernia. Exact details of intervention unknown but also subsequently underwent evaluation by thoracic surgery chandra Almeida enrolled. He does endorse not having sensation of food getting stuck in his chest although he continues to follow the regimen he did previously with small meals, eating slowly and avoiding large foods. Also endorsing some heartburn. We will therefore obtain a esophagram to evaluate for anatomy of the esophagus in addition to starting him on pantoprazole daily in the a.m. (advised to take 30-40 minutes before meals) and also referred to Gastroenterology for possible endoscopic evaluation as deemed necessary by them. Code(s): K44.9 - Diaphragmatic hernia without obstruction or gangrene Category: Medical Plan Today, I discussed with the patient the recurrence of his gastrointestinal symptoms, probable GERD exacerbation, and concerns related to his hiatal hernia history. The patient is advised to follow dietary modifications and take newly prescribed omeprazole to alleviate reflux symptoms while awaiting a breaker operator evaluation. I stress the importance of follow-up consu ltations to manage his conditions effectively. Further evaluation with an esophagram and possibly endoscopic examinations will help elucidate any structural changes post-surgery. The patient was educated on the importance of dietary adjustments and maintaining current hypertension management. Blood testing will further evaluate general health and nutritional status. The patient agreed with the current management plans and follow-up strategies. Orders: Orders Complete Blood Count Auto Diff Today I10 - Essential (primary) hypertension Lipid Panel Today I10 - Essential (primary) hypertension Vitamin D 25-OH Total Today I10 - Essential (primary) hypertension Comprehensive Met. Panel Today I10 - Essential (primary) hypertension Hemoglobin A1c Today I10 - Essential (primary) hypertension TSH reflex Free T4 Today I10 - Essential (primary) hypertension [place] barium swallow Today K44.9 - Diaphragmatic hernia without obstruction or gangrene Referrals Gastroenterology Referral K44.9 - Diaphragmatic hernia without obstruction or gangrene Medications: New pantoprazole 40 mg PO DAILY 90 tabs 0RF K44.9 - Diaphragmatic hernia without obstruction or gangrene Patient Instructions: - Begin taking omeprazole 40 mg 40 minutes before breakfast every day - Follow dietary guidelines: eat slowly, consume smaller meals, and avoid dense foods - Monitor blood pressure regularly and continue current hypertension medications - Pursue GI specialist evaluation promptly - Ensure to attend follow-up visits as scheduled - Get the blood work done today as ordered - Maintain a healthy weight by balancing meals and managing food intake - Seek medical attention if gastrointestinal symptoms worsen or if new symptoms occur
[2025-06-02 10:26] VITALS: BP 102/66; PULSE 62; RESP 18; TEMP 36.6; O2SAT 98; BMI 24.5
--- OUTSIDE RECORDS SUMMARY | 2025-06-02 12:18 | XMS_ITS | Clinical Summary ---
Author Organization [facility] Address [address] [place] [address] Care Team Providers Care Metrology Specialist Name Role Phone Farrukh Goode MD Primary Care Provider [phone] Allergies No known active allergies Medications PREVNAR [...] Health Maintenance Due Date Last Done Comments Advance Care Planning 1935 DTaP/Tdap/Td Vaccines (1 - Tdap) 1956 Pneumococcal Vaccines 50+ (1 of 1 - PCV) 12/01/1987 Zoster (Shingles) Vaccine (1 of 2) 12/01/1987 RSV Vaccine 60 years and old er and Patients (1 - 1-dose 75+ series) 2012 Influenza Vaccine 04/23/2025 COVID-19 Vaccine (1 - 2023-2 5 season) 2025 Hepatitis B Vaccines Aged Out No long er eligible based on patient's age to complete this topic Insurance MEDICARE PART A & B [place] [id number] Care Teams Metrology Specialist Relationship Specialty Start Date End Date Farrukh Goode MD PCP - General 09/03/16
--- OUTSIDE RECORDS SUMMARY | 2025-06-02 12:18 | XMS_ITS | Encounter Summary ---
Author Organization [facility] Address [address] [place] [address] Phone Care Team Providers Care Team Lead Name Role Phone Eric Mohan MD Unavailable [phone] Nick Terrell MD Unavailable Eric Mohan MD Primary Care Provider [phone] Mahendra Alvarado MD Unavailable Encounter Details Date Type Department Care Team (Late st Contact Info) Description 02/18/2019 Procedure Pass [facility] PERIOPERATIVE DEPT [address] [place] [id number] Social History Tobacco Use Types Packs/Day Years Used Date Smoking Tobacco: Former Cigarettes 0.3 5 0 09/23/1956 - 09/23/1961 Smokeless Tobacco: Never Alcohol Use Standard Drinks/Week Comments Not Currently 0 (1 standard drink = 0.6 oz pur e alcohol) Sex and Gender Information Value Date Recorded Sex Assigned at Not on file Legal Sex Male 8:05 PM EST Gender Identity Not on file Sexual Orientation Not on file documented as of this encounter Plan of Treatment Not on file documented as of this encounter Visit Diagnoses Not on filedocumented in this encounter Care Teams Team Lead Relationship Specialty Start Date End Date Eric Mohan MD [address] [place] [address] [place] [address] PCP - General Internal Medicine 12/22/18 Eric Mohan MD [address] [place] [address] [place] [address] Internal Medicine 12/17/18 Nick Terrell MD [address] [place] [address] [place] [address] Cardiology 12/17/18 Mahendra Alvarado MD [address] [place] [id number] [email or web address] 01/27/19 documented as of this encounter Additional Source Comments The information contained in this document represents components of the legal health record. It is not the complete legal health record.[facility]
--- OUTSIDE RECORDS SUMMARY | 2025-06-02 12:18 | XMS_ITS | Patient Health Record ---
Author Organization [facility] Address [address] [facility] [place] [address] Care Team Providers Care Therapist Phys Name Role Phone Eric Mohan MD Primary Care Provider Adam Daugherty Unavailable [phone] Reason For Referral No Information Medications Medication SIG (Take, Route, Frequency, Duration) Notes Start Date End Date Status amLODIPine Besylate 2.5 MG TAKE 1 TABLET BY MOUTH EVERYDAY AT BEDTIME Oral; Duration: 90 Days Active Pravastatin Sodium 20 MG Oral; Duration: 90 Days Active Atenolol 25 MG TAKE 1 TABLET BY GEMA TH EVERY DAY DIRECTED Oral; Duration: 90 Days Active Social History Tobacco Use: [...] Status Risk Notes Problem Acquired hallux valgus ([id number]) Hallux valgus (acquired), left foot (M20.12) Active confirmed Problem Acquired hallux valgus (07517570) Hallux valgus (acquired), right foot (M20.11) Active confirmed Plan Of Treatment No Information Insurance Providers Payer Name Payer Address Payer Phone Subscriber Number Group Number Insured Name Patient Relationship to Insured Coverage Start Date Coverage End Date Medicare National [facility] [address] [place] [address] [id number] David Tran Self - patient is the insured [facility] [address] [place] [address] [id number] 3 Counter, David Self - patient is the insured Medical (General) History Medical History History ICD Code Cataracts Gall bladder problems Gout Hiatal hernia Measles Mumps Chicken pox Transfusions Surgical History Surgery Date(Month/Year) Gall Bladder 06/2005 Esophageal 01/2019
--- OUTSIDE RECORDS SUMMARY | 2025-06-02 12:18 | XMS_ITS | Clinical Summary ---
Author Organization [facility] Address [address] [address] Phone Care Team Providers Care Exotic Dancer Name Role Phone Eric Mohan MD Unavailable [phone] Nick Terrell MD Unavailable Eric Mohan MD Primary Care Provider [phone] Mahendra Alvarado MD Unavailable Allergies No known active allergies Medications allopurinol (ZYLOPRIM) 300 MG tablet Take 300 mg by mouth daily. 8 Active atenolol (TENORMIN) 25 MG tablet Take 25 mg by mouth daily. 7 Active pravastatin (PRAVACHOL) 20 MG tablet Take 20 mg by mouth daily. 7 Active docusate (COLACE) 50 mg/5 mL liquid Take 10 mL (100 mg total) by mouth 2 (two) times a day. 9 Active Additional Information Patient not taking.Reported on 04/08/2019 sennosides 8.8 mg/5 mL Syrp Take 5 mL (8.8 mg total) by mouth 2 (two) times a day. 9 Active Additional Information Patient not taking.Reported on 04/08/2019 traMADol (ULTRAM) 50 mg tablet Take 1 tablet (50 mg total) by mouth every 6 (six) hours as needed for pain (specific location in comments). 15 tablet 9 Active Additional Information Patient not taking.Reported on 04/08/2019 acetaminophen (TYLENOL) 650 mg/20.3 mL Soln Take 20.3 mL (650 mg total) by mouth 4 (four) times a day. 500 mL 9 Active Additional Information Patient not taking.Reported on 04/08/2019 omeprazole (PRILOSEC) 20 MG capsule Take 20 mg by mouth daily. 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 Not on mook e 01/18/2023 Are you concerned about learning? Not on file 01/18/2023 No 01/18/2023 No 01/18/2023 Digital Access Answer Date Recorded No 02/18/2023 No 02/18/2023 No 02/18/2023 Reliable internet access at home? Not on file 02/18/2023 Device with a working camera? Not on file Sex and Gender Information Value Date Recorded Sex Assigned at Not on file Legal Sex Male 8:05 PM EST Gender Identity Not on file Sexual Orientation Not on file Last Filed Vital Signs Vital Sign Reading Time Taken Comments Blood Pressure 136/88 04/08/2019 12:45 PM EDT Pulse 61 04/08/2019 12:45 PM EDT Temperature 36.3 C (97.4 F) 04/08/2019 12:45 PM EDT Respiratory Rate 18 02/20/2019 11:38 AM EDT Oxygen Saturation 97% 04/08/2019 12:45 PM EDT Inhaled Oxygen Concentration - - Weight 74.8 kg (165 lb) 04/08/2019 12:45 PM EDT Height 180.3 cm (5' 11 ) 04/08/2019 12:45 PM EDT Body Mass Index 23.01 04/08/2019 12:45 PM EDT Plan of Treatment Health Maintenance Due Date Last Done Comments Adult Td,Tdap Booster 1935 DEPRESSION SCREENING 1949 PNEUMOCOCCAL VACCINES (50+ years) (1 of 1 - PCV) 12/01/1987 ZOSTER VACCINES (1 of 2) 12/01/1987 RSV VACCINE (1 - 1-dose 75+ series) 2012 CREATININE LEVEL 02/20/2020 02/19/2019, 02/19/2019 COVID-19 VACCINE (3 - 2023-2 5 season) 2024 12/29/2020, 12/08/2020 INFLUENZA VACCINE (#1) 2025 0, 06/17/2019, 07/08/2018 HEPATITIS A VACCINES Aged Out No long er eligible based on patient's age to complete this topic HIB VACCINES Aged Out No longer eligi ble based on patient's age to complete this topic MENINGOCOCCAL VACCINES (ACWY) Aged Out No longer eligible based on patient's age to complete this topic MENINGOCOCCAL VACCINES (B) Aged Out N o longer eligible based on patient's age to complete this topic Medical Devices Not on file Procedures Procedure Name Priority Date/Time Associated Diagnosis Comments BASIC METABOLIC PANEL Routine 02/19/2019 5:55 AM EDT from Last 3 Months or Most Recently Relevant to Health Maintenance Results * (ABNORMAL) Basic metabolic panel (02/19/2019 5:55 AM EDT) SODIUM 138 135 - 145 mmol/L [facility] POTASSIUM 4.7 3.4 - 5.0 mmol/L [facility] CHLORIDE 104 98 - 108 mmol/L [facility] CO2 22(L) 23 - 32 mmol/L [facility] BUN 15 8 - 25 mg/dL [facility] CREATININE 0.96 0.60 - 1.50 mg/dL [facility] GLUCOSE 112(H) 70 - 110 mg/dL [facility] CALCIUM 8.8 8.5 - 10.5 mg/dL [facility] EGFR 74 >59 mL/min/1. 73m2 [facility] Comment:If patient is black, multiply result by 1.159. Estimated glomerular filtration rate calculated using the CKD-EPI equation. ANION GAP 12 3 - 17 mmol/L [facility] Blood 02/19/2019 5:55 AM EDT 02/19/2019 6:02 AM EDT Otto Clark MD LAB BLOOD ORDERABLES Keisha navarro Result [facility] [address] [place] [address] from Last 3 Months or Most Recently Relevant to Health Maintenance Insurance MEDICARE PART A & B [facility] PPO EPO MEDICARE PART A & B [facility] PPO EPO MEDICARE PART A & B [facility] PPO EPO MEDICARE PART A & B [facility] PPO EPO MEDICARE PART A & B [facility] PPO EPO MEDICARE PART A & B [facility] PPO EPO MEDICARE PART A & B [facility] PPO EPO MEDICARE PART A & B [facility] PPO EPO MEDICARE PART A & B [facility] PPO EPO Advance Directives For more information, please contact: [phone] (9AM - 5PM [facility], Saturday-Saturday) * Full Code (Presumed) (Latest Code Status on File) Date Activated Date Inactivated Comments 02/18/2019 11:07 AM 02/20/2019 3:57 PM Care Teams Exotic Dancer Relationship Specialty Start Date End Date Eric Mohan MD [address] [place] [address] [place] [address] PCP - General Internal Medicine 12/22/18 Eric Mohan MD [address] [place] [address] [place] [address] Internal Medicine 12/17/18 Nick Terrell MD [address] [place] [address] [place] [address] Cardiology 12/17/18 Mahendra Alvarado MD [address] [place] [id number] [email or web address] 01/27/19 Additional Source Comments The information contained in this document represents components of the legal health record. It is not the complete legal health record.[facility]
== END 2025-06-02 11:00 | disposition home or self-care (01) ==
LOC: HO.HMCHD 10:08
PROVIDERS: PCP Family Medicine; Visit Provider Student in an Organized Health Care Education/Training Program
DX: I10 Essential (primary) hypertension (principal); K44.9 Diaphragmatic hernia without obstruction or gangrene

== ENCOUNTER → 2025-06-02 10:07 | Outpatient (BNVA) | payer MEDICARE, SELFPAY | PROVIDERS: PCP Family Medicine; Visit Provider Student in an Organized Health Care Education/Training Program | DX: I10 Essential (primary) hypertension (principal); K44.9 Diaphragmatic hernia without obstruction or gangrene; Z79.899 Other long term (current) drug therapy; Z13.31 Encounter for screening for depression; Z13.39 Encounter for screening examination for other mental health and behavioral disorders | CPT/HCPCS: 96127; 99202 ==

== ENCOUNTER 2025-06-29 12:47 | Outpatient (REF) | payer MEDICARE, SELFPAY ==
[2025-06-29 13:51] LABS: MANUAL DIFF FLAG NO
[2025-06-29 14:18] LABS: Hematocrit 40.7 % (42.0-52.0); Hemoglobin 13.4 g/dl (14.0-18.0); Imm Gran Abs Auto 0.02 X10*3/uL (0.00-0.03); Imm Gran Pct Auto 0.3 % (0.0-0.4); Lymphocytes Absolute Auto 1.4 X10*3/uL (1.2-4.9); Mean Corpuscular HGB Conc 32.9 g/dl (31.0-36.0); Mean Corpuscular Hemoglobin 32.4 pg (27.0-33.0); Mean Corpuscular Volume 98.5 fL (80.0-98.0); NRBC Abs Auto 0.000 X10*3/uL (0.0-0.012); NRBC Pct Auto 0.0 /100WBC (0.0-0.2); Platelet Count 173 X10*3/uL (160-400); Red Blood Count 4.13 X10*6/uL (4.60-5.80); White Blood Count 7.3 X10*3/uL (4.8-10.8)
[2025-06-29 14:55] LABS: Alanine Aminotransferase 21 U/L (0-40); Albumin Level 4.7 g/dL (3.5-5.0); Alkaline Phosphatase 61 U/L (39-117); Anion Gap 11 (12-20); Aspartate Amino Transferase 29 U/L (5-37); Blood Urea Nitrogen 21 mg/dL (9-16); Calcium 9.4 mg/dL (8.4-10.2); Carbon Dioxide 27 mmol/L (22-29); Chloride 112 mmol/L (96-108); Cholesterol 164 mg/dL (<200); Estimated Glomerular Filt Rate 51; HDL Cholesterol 35 mg/dL (>40); Potassium 4.1 mmol/L (3.3-5.1); Sodium 146 mmol/L (135-145); Total Protein 7.5 g/dL (6.5-8.0); Triglycerides 113 mg/dL (<150)
== END 2025-06-29 12:48 | disposition home or self-care (01) ==
LOC: HO.LAB 12:47
PROVIDERS: Absent Provider Student in an Organized Health Care Education/Training Program; PCP Student in an Organized Health Care Education/Training Program; Visit Provider Physician Assistant
DX: I10 Essential (primary) hypertension (principal); E78.00 Pure hypercholesterolemia, unspecified; K21.9 Gastro-esophageal reflux disease without esophagitis; K58.0 Irritable bowel syndrome with diarrhea; R09.A2 Foreign body sensation, throat; N40.0 Benign prostatic hyperplasia without lower urinary tract symptoms; R26.0 Ataxic gait; Z13.1 Encounter for screening for diabetes mellitus
CPT/HCPCS: 36415; 80053; 80061; 82306; 83036; 84443; 85025; 99212

== ENCOUNTER 2025-06-29 12:47 | Outpatient (AMB) | payer MEDICARE, SELFPAY ==
--- NOTE | 2025-06-29 12:51 | A.OFFPC_ITS ---
Vital Signs 06/29/25 12:55 Height 5 ft 11 in Weight 76.657 kg BMI 23.6 BP 120/76 Blood Pressure Location Lt brachial Position Sitting Respiration 16 Pulse 67 Pulse Source Pulse Oximeter Pulse Oximetry (%) 97 Oxygen Delivery Method Room Air Oxygen Flow Rate 96.9 Intake Visit Reasons: 4 MO F/UP - ALVARADO PT Printing Grey Cloth Tender Required: No Accompanied by: Self / Same As Patient Allergies No Known Allergies Allergy (Verified 06/29/25 12:51) Medication List - Last Reconciled 06/29/25 by NATHAN Watts amlodipine 5 mg PO BEDTIME pantoprazole 40 mg PO DAILY zinc gluconate 50 mg PO DAILY Tobacco use date assessed: 06/02/25 HPI HPI Comments History of Present Illness Details 89-year-old male with history of hyperte nsion, hypercholesterolemia, IBS-D, GERD, BPH, hiatal hernia presenting to the office today for management of chronic conditions and to establish care. He is a prior patient of Dr. Mohan, last seen 02/2025. 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 He does visit daily but it very lonely. Hypertension-on amlodipine 5 mg nightly. Has been taking atenolol but ran out of the medication. Despite this, blood pressure is 120/76 in the office today with readings consistent with this at home Hypercholesterolemia-took himself off his statin many years ago. Last LDL was 76, total cholesterol 136 GERD-has reportedly been experiencing globus sensation and is now on pantoprazole 40 mg daily. He has upcoming barium swallow and has been referred to Gastroenterology. He is also managing symptoms with eating smaller bites, alternating solids and fluids, avoiding dense foods such as meats. Has history of hiatal hernia with history of fundoplication in 2018 at [facility]. [id number] with diet changes Hx hematuria- underwent cystoscopy without any significant findings Concerns: As above Gait ataxia- no shuffling gait but feels wobbly. No confusion or incontinence. No falls Health Maintenance: No longer undergoing colonoscopies ROS: See HPI EXAM: Constitutional - Awake and Alert, No apparent distress Eyes - PERRL Cardiovascular - S1S2, RRR, No edema Respiratory - Normal lung expansion, Normal respiratory effort, No respiratory distress, CTA bilaterally Extremities - no calf tenderness bilaterally, no swelling Skin - Warm/Dry Neurological - Alert & oriented x3, gait ataxia Psychological - Appropriate affect [facility] Medical History (Updated 06/29/25 @ 13:34 by NATHAN Watts) Ataxic gait BPH (benign prostatic hyperplasia) Irritable bowel syndrome with diarrhea Hyperlipidemia Hiatal hernia Hypertension Social History Housing: House Patient Tobacco Use Status: Former Tobacco user Tobacco use type: Cigarette e-Cigarette/Vaping Use: Never Used service: No Current occupational status: retired Questionnaire Thrive Questionnaire Date Thrive assessed: 06/02/25 VINITA-7 AMB Questionnaire VINITA-7 Date VINITA - 7 assessed: 06/02/25 Source: Developed by Drs. Harpal Interiano, Trina Woo, Jamie Roland and colleagues, with an educational efrain from [employer]. Physical exam (Primary Care) Vital Signs: Last Vital Signs Pulse 67 06/29/25 12:55 Resp 16 06/29/25 12:55 BP 120/76 06/29/25 12:55 Pulse Ox 97 06/29/25 12:55 Oxygen Delivery Method Room Air 06/29/25 12:55 Oxygen Flow Rate 96.9 06/29/25 12:55 BMI result Body Mass Index 23.6 Tobacco/Smoking Status: Tobacco use Status Tobacco use date assessed 06/02/25 06/29/25 12:57 Patient Tobacco Use Status Former Tobacco user 06/29/25 12:57 Tobacco use type Cigarette 06/29/25 12:57 e-Cigarette/Vaping Use Never Used 06/29/25 12:57 Thrive Assessment: Date of Thrive Assessment Date Thrive assessed 06/02/25 06/29/25 12:57 Coding Level of Care Code Est Pt Level 4 (84621) Complex EM visit Add On G2211 Diagnoses Irritable bowel syndrome with diarrhea K58.0 Globus sensation R09.A2 BPH (benign prostatic hyperplasia) N40.0 Hypertension, unspecified type I10 Hypertension type: unspecified Ataxic gait R26.0 Assessment & Plan Assessment & Plan (1) Irritable bowel syndrome with diarrhea: Code(s): K58.0 - Irritable bowel syndrome with diarrhea Category: Medical Plan: Stable. Continue dietary modifications for symptom management (2) Globus sensation: Code(s): R09.A2 - Foreign body sensation, throat Category: Medical Plan: Continue with pantoprazole 40 mg daily. Proceed with barium swallow next week as scheduled and follow-up with Gastroenterology in August as scheduled (3) BPH (benign prostatic hyperplasia): Code(s): N40.0 - Benign prostatic hyperplasia without lower urinary tract symptoms Category: Medical Plan: No LUTS. Monitor for symptoms (4) Hypertension: Comment: - stopped atenolol as he ran out of medication. Has continued on amlodipine. Blood pressure well-controlled in the office - Monitor blood pressure regularly - well controlled in clinic today Code(s): I10 - Essential (primary) hypertension Category: Medical Qualifiers: Hypertension type: unspecified Qualified Code(s): I10 - Essential (primary) hypertension Plan: Can continue off of the atenolol. Continue amlodipine 5 mg daily. 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 Advised to use cane to help with steadiness. Unlikely to be NPH or Parkinson's Plan Follow-up in the office as scheduled on 09/01 with PCP. Advised have labs completed today For any severe abdominal pain or vomiting in conjunction with the globus sens ation, advised to present to the ED Recommend attending senior center and regular visits with family and his family's dog, Saida, for companionship. Advised to continue with regular hobbies to help with loneliness related to his now living in an SNF Medications: New amlodipine 5 mg PO BEDTIME 90 tabs 1RF
[2025-06-29 12:55] VITALS: BP 120/76; PULSE 67; RESP 16; O2SAT 97; BMI 23.6
--- OUTSIDE RECORDS SUMMARY | 2025-06-29 15:39 | XMS_ITS | Clinical Summary ---
Author Organization [facility] Address [address] [place] [address] Care Team Providers Care Lead Cargo Mover Name Role Phone Farrukh Goode MD Primary Care Provider [phone] Allergies No known active allergies Medications PREVNAR [...] topic Insurance MEDICARE PART A & B [place] [id number] Care Teams Lead Cargo Mover Relationship Specialty Start Date End Date Farrukh Goode MD PCP - General 09/03/16
--- OUTSIDE RECORDS SUMMARY | 2025-06-29 15:39 | XMS_ITS | Clinical Summary ---
Author Organization [facility] Address [address] [address] Phone Care Team Providers Care Albacore Fishing Boat Crewman Name Role Phone Eric Mohan MD Unavailable [phone] Nick Terrell MD Unavailable Eric Mohan MD Primary Care Provider Mahendra Alvarado MD Unavailable Allergies No known [...] series) 2012 CREATININE LEVEL 02/20/2020 02/19/2019, 02/19/2019 INFLUENZA VACCINE (#1) 2025 0, 06/17/2019, 07/08/2018 COVID-19 VACCINE (3 - 2024-2 6 season) 2025 12/29/2020, 12/08/2020 HEPATITIS A VACCINES Aged Out No long [...] EDT) SODIUM 138 135 - 145 mmol/L [facility] POTASSIUM 4.7 3.4 - 5.0 mmol/L [facility] CHLORIDE 104 98 - 108 mmol/L [facility] CO2 22(L) 23 - 32 mmol/L [facility] BUN 15 8 - 25 mg/dL [facility] CREATININE 0.96 0.60 - 1.50 mg/dL [facility] GLUCOSE 112(H) 70 - 110 mg/dL [facility] CALCIUM 8.8 8.5 - 10.5 mg/dL [facility] EGFR 74 >59 mL/min/1. 73m2 [facility] Comment:If patient is black, multiply result by 1.159. Estimated glomerular filtration rate calculated using the CKD-EPI equation. ANION GAP 12 3 - 17 mmol/L [facility] Blood 02/19/2019 5:55 AM EDT 02/19/2019 6:02 AM EDT Otto Clark MD LAB BLOOD ORDERABLES Keisha navarro Result [facility] [address] [place] [place] [address] from Last 3 Months or Most Recently Relevant to Health Maintenance Insurance MEDICARE PART A & B [facility] PPO EPO MEDICARE PART A & B [facility] PPO EPO MEDICARE PART A & B [facility] PPO EPO MEDICARE PART A & B [facility] PPO EPO MEDICARE PART A & B [facility] PPO EPO MEDICARE PART A & B [facility] PPO EPO MEDICARE PART A & B [facility] PPO EPO MEDICARE PART A & B [facility] PPO EPO MEDICARE PART A & B [facility] PPO EPO Advance Directives For more information, please contact: [phone] (9AM - 5PM [facility], Saturday-Saturday) * Full Code (Presumed) (Latest Code Status on File) Date Activated Date Inactivated Comments 02/18/2019 11:07 AM 02/20/2019 3:57 PM Care Teams Albacore Fishing Boat Crewman Relationship Specialty Start Date End Date Eric Mohan MD [address] [place] [address] [place] [address] PCP - General Internal Medicine 12/22/18 Eric Mohan MD [address] [place] [address] [place] [address] Internal Medicine 12/17/18 Nick Terrell MD [address] [place] [address] [place] [address] Cardiology 12/17/18 Mahendra Alvarado MD [address] [place] [address] [email or web address] 01/27/19 Additional Source Comments The information contained in this document represents components of the legal health record. It is not the complete legal health record.[facility]
--- OUTSIDE RECORDS SUMMARY | 2025-06-29 15:39 | XMS_ITS | Encounter Summary ---
Author Organization [facility] Address [address] [place] [address] Phone Care Team Providers Care Talent Partner Name Role Phone Eric Mohan MD Unavailable Nick Terrell MD Unavailable Eric Mohan MD Primary Care Provider Mahendra Alvarado MD Unavailable Encounter Details Date Type Department Care Team (Late st Contact Info) Description 02/18/2019 Procedure Pass [facility] [address] [place] [id number] Social History Tobacco Use Types Packs/Day Years [...] on filedocumented in this encounter Care Teams Talent Partner Relationship Specialty Start Date End Date Eric Mohan MD [address] [place] [address] [place] [address] PCP - General Internal Medicine 12/22/18 Eric Mohan MD [address] [place] [address] [place] [address] Internal Medicine 12/17/18 Nick Terrell MD [address] [place] [address] KRYSTAL SCHULZ [place] [address] Cardiology 12/17/18 Mahendra Alvarado MD [address] [place] [address] [email or web address] [facility] 01/27/19 documented as of this encounter Additional Source Comments The information contained in this document represents components of the legal health record. It is not the complete legal health record.[facility]
--- OUTSIDE RECORDS SUMMARY | 2025-06-29 15:39 | XMS_ITS | Patient Health Record ---
Author Organization [facility] Address [address] [facility] [place] [address] Care Team Providers Care Sorting And Folding Supervisor Name Role Phone Eric Mohan MD Primary Care Provider Unavailab [place] Unavailable [phone] Reason For Referral No Information Medications Medication [...] Status Risk Notes Problem Acquired hallux valgus ([id number]) Hallux valgus (acquired), left foot (M20.12) Active confirmed Problem Acquired hallux valgus ([id number]) Hallux valgus (acquired), right foot (M20.11) Active confirmed Plan Of Treatment No Information Insurance Providers Payer Name Payer Address Payer Phone Subscriber Number Group Number Insured Name Patient Relationship to Insured Coverage Start Date Coverage End Date Medicare National Govt Sv[employer] Inc [address] [place] [address] [id number] David Trna Self - patient is the insured [facility] [address] [place] [address] [phone] [id number] 3 Counter, David Self - patient is the insured Medical (General) History Medical History History ICD Code Cataracts Gall bladder problems Gout Hiatal hernia Measles Mumps Chicken pox Transfusions Surgical History Surgery Date(Month/Year) Gall Bladder 06/2005 Esophageal 01/2019
== END 2025-06-29 13:25 | disposition home or self-care (01) ==
LOC: HO.HMCHD 12:48
PROVIDERS: PCP Family Medicine; Visit Provider Physician Assistant
DX: K58.0 Irritable bowel syndrome with diarrhea (principal); R09.A2 Foreign body sensation, throat; N40.0 Benign prostatic hyperplasia without lower urinary tract symptoms; I10 Essential (primary) hypertension; R26.0 Ataxic gait

== ENCOUNTER 2025-07-09 07:35 | Outpatient (REF) | payer MEDICARE, SELFPAY ==
--- NOTE | ~2025-07-09 | FL_ITS ---
Examination: Barium swallow with air. CLINICAL INDICATION: Solid food gets stuck in the throat. COMPARISON: Upper GI exam 06/12/2021. TECHNIQUE: Routine barium swallow upright was performed with thick barium and barium coated saltine crackers and thin barium in prone lying position. FINDINGS: On oral administration of thick barium there is normal propagation bolus from the oral cavity through the pharynx, esophagus into stomach. There is mild to moderate retention of barium in valleculae and piriform sinuses. On third attempt of barium swallowing patient had abran barium penetration and aspiration to the level of marisa. On oral administration of effervescent granules and subsequently barium coated saltine cracker there is normal oral mastication and propagation of solid food from the oral cavity, pharynx, esophagus into stomach. Small volume thin barium was administered for clearing of the solid foods midesophagus. On placing patient prone lying and oral administration of thin barium there is good distention of esophagus without extrinsic compression. The fundus and the stomach is horizontally oriented suggestive of fundoplication from remote hiatal hernia surgery. There is no reflux or hiatal hernia seen on the present exam supine and prone position. FL/FL barium swallow with air IMPRESSION: Abran laryngeal penetration and aspiration with thin barium on third attempt in upright view. There is no obstruction seen in esophagus to solids or liquids. Postsurgical changes on epigastric region from fundoplication for a large hiatal hernia as per patient. Fluoroscopy time: 2 minutes and 43 seconds. Dose area product: 2202 mGy/cm. Electronically signed by: Antony Kruse MD 07/09/2025 10:24 AM EDT
--- OUTSIDE RECORDS SUMMARY | 2025-07-09 07:39 | XMS_ITS | Clinical Summary ---
Author Organization [facility] Address [address] [place] [address] Care Team Providers Care Consulting Software Engineer Name Role Phone Farrukh Goode MD Primary Care Provider [phone] Allergies No known active allergies Medications PREVNAR [...] Vaccine (1 of 2) 12/01/1987 RSV Vaccine 50 years and old er and Patients (1 - 1-dose 75+ series) 2012 Influenza Vaccine 04/23/2025 COVID-19 Vaccine (1 - 2023-2 5 season) 2025 Hepatitis B Vaccines Aged Out No long er eligible based on patient's age to complete this topic Insurance MEDICARE PART A & B [place] [id number] Care Teams Consulting Software Engineer Relationship Specialty Start Date End Date Farrukh Goode MD PCP - General 09/03/16
--- OUTSIDE RECORDS SUMMARY | 2025-07-09 07:39 | XMS_ITS | Patient Health Record ---
Author Organization [facility] Address [address] [facility] [place] [address] Care Team Providers Care Solar Field Installation Crew Member Name Role Phone Eric Mohan MD Primary Care Provider Unavailab [place] Unavailable [phone] Reason For Referral No Information Medications Medication [...] Status Risk Notes Problem Acquired hallux valgus ([id number]) Hallux valgus (acquired), left foot (M20.12) Active confirmed Problem Acquired hallux valgus ([id number]) Hallux valgus (acquired), right foot (M20.11) Active confirmed Plan Of Treatment No Information Insurance Providers Payer Name Payer Address Payer Phone Subscriber Number Group Number Insured Name Patient Relationship to Insured Coverage Start Date Coverage End Date Medicare National Govt Svcs Inc [address] [place] [address] [id number] Davdi Tran Self - patient is the insured [facility] [address] [place] [address] [phone] [id number] 3 Counter, David Self - patient is the insured Medical (General) History Medical History History ICD Code Cataracts Gall bladder problems Gout Hiatal hernia Measles Mumps Chicken pox Transfusions Surgical History Surgery Date(Month/Year) Gall Bladder 06/2005 Esophageal 01/2019
--- OUTSIDE RECORDS SUMMARY | 2025-07-09 07:39 | XMS_ITS | Encounter Summary ---
Author Organization [facility] Address [address] [place] [address] Phone Care Team Providers Care Blood Collector Name Role Phone Eric Mohan MD Unavailable [phone] Nick Terrell MD Unavailable [phone] Eric Mohan MD Primary Care Provider Mahendra Alvarado MD Unavailable Encounter Details Date Type Department Care Team (Late st Contact Info) Description 02/18/2019 Procedure Pass [facility] PERIOPERATIVE DEPT [address] [place] [phone] Social History Tobacco Use Types Packs/Day Years [...] on filedocumented in this encounter Care Teams Blood Collector Relationship Specialty Start Date End Date Eric Mohan MD [address] [place] [address] [place] [address] PCP - General Internal Medicine 12/22/18 Eric Mohan MD [address] [place] [address] [place] [address] Internal Medicine 12/17/18 Nick Terrell MD [address] [place] [address] KRYSTAL SCHULZ [place] [address] Cardiology 12/17/18 Mahendra Alvarado MD [address] [place] [address] [email or web address] G[facility] 01/27/19 documented as of this encounter Additional Source Comments The information contained in this document represents components of the legal health record. It is not the complete legal health record.[facility]
--- OUTSIDE RECORDS SUMMARY | 2025-07-09 07:39 | XMS_ITS | Clinical Summary ---
Author Organization [facility] Address [address] [address] Phone Care Team Providers Care Director Of Distance Learning Name Role Phone Eric Mohan MD Unavailable Nick Terrell MD Unavailable Eric Mohan MD Primary Care Provider Mahendra Alvarado MD Unavailable [phone] Allergies No known active allergies Medications allopurinol [...] EDT) SODIUM 138 135 - 145 mmol/L [facility] POTASSIUM 4.7 3.4 - 5.0 mmol/L [facility] CHLORIDE 104 98 - 108 mmol/L [facility] CO2 22(L) 23 - 32 mmol/L [facility] BUN 15 8 - 25 mg/dL [facility] CREATININE 0.96 0.60 - 1.50 mg/dL [facility] GLUCOSE 112(H) 70 - 110 mg/dL [facility] CALCIUM 8.8 8.5 - 10.5 mg/dL [facility] EGFR 74 >59 mL/min/1. 73m2 [facility] Comment:If patient is black, multiply result by 1.159. Estimated glomerular filtration rate calculated using the CKD-EPI equation. ANION GAP 12 3 - 17 mmol/L [facility] Blood 02/19/2019 5:55 AM EDT 02/19/2019 6:02 AM EDT Otto Clark MD LAB BLOOD ORDERABLES Keisha navarro Result [facility] [address] [place] [address] from Last 3 Months or Most Recently Relevant to Health Maintenance Insurance MEDICARE PART A & B [facility] PPO EPO MEDICARE PART A & B [facility] PPO EPO MEDICARE PART A & B [facility] PPO EPO MEDICARE PART A & B [facility] PPO EPO MEDICARE PART A & B [facility] PPO EPO MEDICARE PART A & B [facility] PPO EPO MEDICARE PART A & B [facility] PPO EPO MEDICARE PART A & B [facility] PPO EPO MEDICARE PART A & B [facility] PPO EPO Advance Directives For more information, please contact: [phone] (9AM - 5PM [facility], Saturday-Saturday) * Full Code (Presumed) (Latest Code Status on File) Date Activated Date Inactivated Comments 02/18/2019 11:07 AM 02/20/2019 3:57 PM Care Teams Director Of Distance Learning Relationship Specialty Start Date End Date Eric Mohan MD [address] [place] [address] [place] [address] PCP - General Internal Medicine 12/22/18 Eric Mohan MD [address] [place] [address] [place] [address] Internal Medicine 12/17/18 Nick Terrell MD [address] [place] [address] [place] [address] Cardiology 12/17/18 Mahendra Alvarado MD [address] [place] [phone] [email or web address] [facility] 01/27/19 Additional Source Comments The information contained in this document represents components of the legal health record. It is not the complete legal health record.[facility]
== END 2025-07-09 07:36 | disposition home or self-care (01) ==
LOC: HO.XRAY 07:35
PROVIDERS: PCP Student in an Organized Health Care Education/Training Program; Visit Provider Student in an Organized Health Care Education/Training Program
DX: K44.9 Diaphragmatic hernia without obstruction or gangrene (principal)
CPT/HCPCS: 74221

== ENCOUNTER → 2025-07-09 07:36 | Outpatient (BNV) | payer MEDICARE, SELFPAY | PROVIDERS: PCP Student in an Organized Health Care Education/Training Program; Visit Provider Radiology Diagnostic Radiology | DX: R13.10 Dysphagia, unspecified (principal); K44.9 Diaphragmatic hernia without obstruction or gangrene | CPT/HCPCS: 74221 ==

== ENCOUNTER 2025-07-13 14:01 | Outpatient (REF) | payer MEDICARE, SELFPAY ==
--- NOTE | ~2025-07-13 | FL_ITS ---
EXAMINATION: XR MODIFIED BARIUM SWALLOW CLINICAL INFORMATION: Foreign body sensation COMPARISON: None available. TECHNIQUE: Modified Barium Swallow FINDINGS: Fluoroscopy provided for modified barium swallow performed by the speech pathologist. Patient swallowed liquids and solids of varying consistency. No aspiration is seen. See speech pathology report for details. FLUOROSCOPY TIME: 59 seconds DOSE AREA PRODUCT: 30 uGy-m2 (microgray-meter squared) FL/FL Modified Barium Swallow IMPRESSION: As above Electronically signed by: Sean Bonds MD 07/13/2025 04:31 PM EDT
--- OUTSIDE RECORDS SUMMARY | 2025-07-13 18:52 | XMS_ITS | Encounter Summary ---
Author Organization [facility] Address [address] [place] [address] Phone Care Team Providers Care Paper Coating Machine Operator Name Role Phone Eric Mohan MD Unavailable Nick Terrell MD Unavailable Eric Mohan MD Primary Care Provider Mahendra Alvarado MD Unavailable Encounter Details Date Type Department Care Team (Late st Contact Info) Description 02/18/2019 Procedure Pass [facility] PERIOPER[facility] DEPT [address] [place] [id number] Social History Tobacco Use Types Packs/Day Years [...] on filedocumented in this encounter Care Teams Paper Coating Machine Operator Relationship Specialty Start Date End Date Eric Mohan MD [address] [place] [address] [place] [address] PCP - General Internal Medicine 12/22/18 Eric Mohan MD [address] [place] [address] [place] [address] Internal Medicine 12/17/18 Nick Terrell MD [address] [place] [address] KRYSTAL SCHULZ [place] [address] Cardiology 12/17/18 Mahendra Alvarado MD [address] [place] [address] [email or web address] [email or web address] 01/27/19 documented as of this encounter Additional Source Comments The information contained in this document represents components of the legal health record. It is not the complete legal health record.[facility]
--- OUTSIDE RECORDS SUMMARY | 2025-07-13 18:52 | XMS_ITS | Patient Health Record ---
Author Organization [facility] Address [address] [facility] [place] [address] Care Team Providers Care Continuous Absorption Process Operator Name Role Phone Eric Mohan MD Primary Care Provider Unavailab [place] Unavailable [phone] Reason For Referral No Information Medications Medication [...] Status Risk Notes Problem Acquired hallux valgus ([id number]) Hallux valgus (acquired), left foot (M20.12) Active confirmed Problem Acquired hallux valgus (53465914) Hallux valgus (acquired), right foot (M20.11) Active confirmed Plan Of Treatment No Information Insurance Providers Payer Name Payer Address Payer Phone Subscriber Number Group Number Insured Name Patient Relationship to Insured Coverage Start Date Coverage End Date Medicare National Govt Svcs Inc [address] [facility] [address] [id number] David Tran Self - patient is the insured [facility] [address] [place] [phone] [id number] 3 Counter, David Self - patient is the insured Medical (General) History Medical History History ICD Code Cataracts Gall bladder problems Gout Hiatal hernia Measles Mumps Chicken pox Transfusions Surgical History Surgery Date(Month/Year) Gall Bladder 06/2005 Esophageal 01/2019
--- OUTSIDE RECORDS SUMMARY | 2025-07-13 18:52 | XMS_ITS | Clinical Summary ---
Author Organization [facility] Address [address] [place] [address] Care Team Providers Care Leather Dresser Name Role Phone Farrukh Goode MD Primary Care Provider [phone] Allergies No known active allergies Medications PREVNAR [...] topic Insurance MEDICARE PART A & B [place] [id number] Care Teams Leather Dresser Relationship Specialty Start Date End Date Farrukh Goode MD PCP - General 09/03/16
--- OUTSIDE RECORDS SUMMARY | 2025-07-13 18:53 | XMS_ITS | Clinical Summary ---
Author Organization [facility] Address [address] [address] Phone Care Team Providers Care Muffle Worker Name Role Phone Eric Mohan MD Unavailable [phone] Nick Terrell MD Unavailable Eric Mohan MD Primary Care Provider [phone] Mahendra Alvarado MD Unavailable Allergies No known [...] EDT) SODIUM 138 135 - 145 mmol/L [facility] POTASSIUM 4.7 3.4 - 5.0 mmol/L [facility] CHLORIDE 104 98 - 108 mmol/L [facility] CO2 22(L) 23 - 32 mmol/L [facility] BUN 15 8 - 25 mg/dL [facility] CREATININE 0.96 0.60 - 1.50 mg/dL [facility] GLUCOSE 112(H) 70 - 110 mg/dL [facility] CALCIUM 8.8 8.5 - 10.5 mg/dL [facility] EGFR 74 >59 mL/min/1. 73m2 [facility] Comment:If patient is black, multiply result by 1.159. Estimated glomerular filtration rate calculated using the CKD-EPI equation. ANION GAP 12 3 - 17 mmol/L [facility] Blood 02/19/2019 5:55 AM EDT 02/19/2019 6:02 AM EDT Otto Clark MD LAB BLOOD ORDERABLES Keisha navarro Result [facility] [address] [place] [address] from Last 3 Months or Most Recently Relevant to Health Maintenance Insurance MEDICARE PART A & B [facility] PPO EPO MEDICARE PART A & B [facility] PPO EPO MEDICARE PART A & B [facility] PPO EPO MEDICARE PART A & B [facility] PPO EPO MEDICARE PART A & B [facility] PPO EPO MEDICARE PART A & B [facility] PPO EPO MEDICARE PART A & B [facility] PPO EPO MEDICARE PART A & B [facility] PPO EPO MEDICARE PART A & B [facility] PPO EPO Advance Directives For more information, please contact: [phone] (9AM - 5PM [facility], Saturday-Saturday) * Full Code (Presumed) (Latest Code Status on File) Date Activated Date Inactivated Comments 02/18/2019 11:07 AM 02/20/2019 3:57 PM Care Teams Muffle Worker Relationship Specialty Start Date End Date Eric Mohan MD [address] [place] [address] [place] [address] PCP - General Internal Medicine 12/22/18 Eric Mohan MD [address] [place] [address] [place] [address] Internal Medicine 12/17/18 Nick Terrell MD [address] [place] [address] [place] [address] Cardiology 12/17/18 Mahendra Alvarado MD [address] [place] [phone] [email or web address] [email or web address] Gastroenterology 01/27/19 Additional Source Comments The information contained in this document represents components of the legal health record. It is not the complete legal health record.[facility]
--- NOTE | 2025-07-14 08:16 | MHC.SL.IMP ---
Date of Plan of Treatment: 07/13/25 Onset of Symptoms/Illness: 07/09/25 Date Treatment Started: 07/13/25 Admitting Diagnosis: GERD Primary Speech & Language Diagnosis: R13.10 Dysphagia Reason for Today's Visit: 35770 Modified Barium Swallow Study Pre-evaluation Dietary Consistencies: Regular Pre-evaluation Liquid Consistency: Thin Pre-evaluation Medication Administration: Whole with Liquid Medical History: Modified Barium Swallow Study Fluoroscopic Evaluation of Swallowing Function CPT Code 18313 Evaluation Year: 2024 Reason for Study: Aspiration on previous barium swallow Referring Physician: Luis Carlos Beatty MD Evaluating Clinician: Ashley Pineda MA, CCC-MILL TENDER WASHING Study Number: 1 Patient Name: David Tran Status: Outpatient, Ambulatory Age: 89 Sex: Male Medical History Medical History (Updated 06/29/25 @ 13:34 by NATHAN Watts) Ataxic gait BPH (benign prostatic hyperplasia) Irritable bowel syndrome with diarrhea Hyperlipidemia Hiatal hernia Hypertension Current (pre-evaluation) Intake/Diet: Route: PO Diet Grade: Regular Liquid Consistencies: Thin Pre-Study Functional Oral Intake Scale (FOIS): 7- Total oral intake with no restrictions Pain: None reported at time of study SUBJECTIVE: Patient is an 89 year old male referred for a barium swallow study by his primary care provider, Luis Carlos Beatty MD. Patient had a barium swallow x-ray on 07/09/25 to investigate complaints of globus sensation. Study revealed, ?Abran laryngeal penetration and aspiration with thin barium on third attempt in upright view. There is no obstruction seen in esophagus to solids or liquids. Postsurgical changes on epigastric region from fundoplication for a large hiatal hernia as per patient.? He is referred for a modified barium swallow now to further evaluate extent of pharyngeal dysphagia and concern for aspiration. Note pertinent history of GERD and hiatal hernia. Per EMR, patient had an upper GI series done previously on 06/20/21 showing ?Severe gastroesophageal reflux. Question small paraesophageal hernia. Abnormal orientation of the stomach likely related to previous surgery.? Patient reportedly takes pantoprazole for his reflux. Oral Motor Exam Facial Symmetry: Symmetrical Mouth Occlusion: Normal Tongue Size: Normal Tongue Excursion Description: Normal Is patient able to manage secretions?: Yes Food and Liquid Trials: Oral Impairment: Lip Closure: Did not test Oral Impairment: Tongue Control During Bolus Hold: 0=Cohesive bolus between tongue to palatal seal Oral Impairment: Bolus Preparation/Mastication: 0=Timely and efficient chewing and mashing Oral Impairment: Bolus Transport/Lingual Motion: 0=Brisk tongue motion Oral Impairment: Oral Residue: Did not test Oral Impairment:Initiation of Pharyngeal Swallow: 0=Bolus head at posterior angle of ramus (first hyoid excursion) Pharyngeal Impairment: Soft Palate Elevation: 0=No bolus between soft palate (SP)/pharyngeal wall (PW) Pharyngeal Impairment: Laryngeal Elevation: 0=Complete superior movement of thyroid cartilage (see description) Pharyngeal Impairment: Anterior Hyoid Excursion: 0=Complete anterior movement Pharyngeal Impairment: Epiglottic Movement: 1=Partial inversion Pharyngeal Impairment: Laryngeal Vestibular Closure:: 0=Complete: no air/contrast in laryngeal vestibule Pharyngeal Impairment: Pharyngeal Stripping Wave: 0=Present: complete Pharyngeal Impairment: Pharyngeal Contraction: Did not test Pharyngeal Impairment: Pharyngoesophageal Segment Openin=Complete distension and complete duration: no obstruction of flow Pharyngeal Impairment: Tongue Base (TB) Retraction: 1=Trace column of contrast/air between TB and posterior PW Pharyngeal Impairment: Pharyngeal Residue: 1=Trace residue within or on pharyngeal structures Pharyngeal Impairment: Esophageal Clearance Upright Position: Did not test Impressions and Recommendations OBJECTIVE: Time-out: performed at 14:30 Evaluation Start: 14:00; Stop: 14:10 Patient Positioning: Standing Viewing Planes: LATERAL ONLY Contrast: MBSImP? Standardized Protocol using commercially prepared, standardized Barium viscosities, including: Varibar? THIN LIQUID (40% w/v, <15 cps) , Varibar? PUDDING (40% w/v, <0873-8826 cps) , 1/2 Shortbread Cookie (1 x1 x.25 ) MBSImP ID: [id number] [facility] Results: Lip closure for intraoral bolus containment could not be assessed due to logistical reasons not related to physiologic impairment. Tongue control during bolus hold maintained a cohesive bolus held between tongue to palate seal. Bolus preparation and mastication resulted in timely and efficient chewing and mashing. Bolus transport/lingual motion was with brisk tongue motion. Oral residue could not be assessed due to logistical reasons not related to physiologic impairment. Initiation of the pharyngeal swallow occurred as the bolus head reached the posterior angle of the mandibular ramus. Soft palate elevation resulted in no bolus between the soft palate and the pharyngeal wall. Laryngeal elevation demonstrated complete superior movement of the thyroid cartilage with complete approximation of the arytenoids to the epiglottic petiole. Anterior hyoid excursion demonstrated complete anterior movement. Epiglottic movement resulted in partial inversion. Laryngeal vestibular closure was complete, as indicated by no air or contrast within the laryngeal vestibule at the height of the swallow. Pharyngeal stripping wave was present and complete. Pharyngeal contraction could not be determined due to logistical reasons not related to physiologic impairment. Pharyngoesophageal segment opening was completely distended for complete duration with no obstruction of bolus flow. Tongue base retraction allowed a trace column of contrast or air between the retracted tongue base and the posterior pharyngeal wall. Pharyngeal residue was a trace within or on pharyngeal structures. Esophageal clearance in the upright position could not be assessed due to logistical reasons not related to physiologic impairment. Oral Impairment Score: 0 (absence of score, component 1component 5) Pharyngeal Impairment Score: 1 (absence of score, component 13) Esophageal Impairment Score: --- (absence of score, component 17) Laryngeal Penetration and Aspiration: Neither penetration nor aspiration was observed in today's study with Cookie, Pudding-thick, Thin. ASSESSMENT: This exam was conducted by the radiologist and the speech pathologist. Patient was standing for lateral view and fed himself independently. He trialed the following consistencies: -Thin liquid (via individual cup sips) -Puree (mixture applesauce w/ barium pudding) -Regular (shortbread cookies coated w/ barium pudding) Patient demonstrated good tongue control with no premature posterior spillage. Mastication was timely and efficient. Timely bolus transport with brisk lingual movement. Pharyngeal swallow trigger was timely, initiated as the bolus head reached the posterior angle of ramus. No evidence of nasopharyngeal reflux. Complete laryngeal elevation with partial epiglottic inversion and complete laryngeal vestibular closure. No evidence of aspiration or penetration during this exam. Trace pooling in the valleculae and pyriforms cleared with subsequent swallows. No obstruction of flow through the pharyngoesophageal segment opening. Liquid Intake Recommendation: Thin Dietary Recommendations: Regular Medication Administration: Whole with Liquid Please contact the pharmacy regarding appropriate crushable or liquid drug formulations that are available whenever modified delivery is recommended. Compensatory Strategies Recommended: Sitting Upright (90 deg), Small Bites and Sips, Rate of Ingestion Change Recommendation for Speech Therapy: NA:Typical Evaluation Text Comment: Intake Recommendations: Route: PO Diet Grade: Regular Liquid Consistencies: Thin Post-Study Functional Oral Intake Scale (FOIS): 7- Total oral intake with no restrictions No evidence of aspiration or penetration. Good pharyngeal clearance. Suggested Referrals: The patient might benefit from a referral to: Gastroenterology Indication for Referral: Hx GERD, c/o globus sensation, MBSS showing no significant pharyngeal residue to be causing this symptom Therapy Recommendations: Speech Therapy is not indicated at this time, as oral and pharyngeal phase of the swallow appear to be functional based on observations made with this exam. Due to previous aspiration event, patient is recommended to take precautions with oral intake: take small bites/sips, one bite/sip at a time, eat/drink with a slow pace, ensure upright 90 degree position when eating/drinking. Clinician - Supplemental, Miscellaneous Communication: It is important to note MBSS objective studies are snapshots in time and Patient function might vary with factors such as time of day or concomitant medical conditions. For this reason, the final treatment plan for this patient should rest with their medical care team. Additional recommendations should be considered with the totality of the Patient in mind. Thank for the opportunity to participate in the care of this patient. If you have any questions about the content of this report, please contact the [facility] at [facility]. Education: Education regarding findings from today's study and plans for therapy were provided to Patient only through Verbal Instruction. Understanding was expressed by the Patient only. Wheel Press Operator Clinician/Clinical Fellow: No Supervisory Statement: N/A Speech Language Pathologist: Ashley Pineda M.A., CCC-MILL TENDER WASHING
== END 2025-07-13 14:02 | disposition home or self-care (01) ==
LOC: HO.XRAY 14:01
PROVIDERS: Visit Provider Student in an Organized Health Care Education/Training Program
DX: R09.A2 Foreign body sensation, throat (principal); K44.9 Diaphragmatic hernia without obstruction or gangrene; R13.10 Dysphagia, unspecified
CPT/HCPCS: 74230; 92611

== ENCOUNTER → 2025-07-13 14:30 | Outpatient (BNV) | payer MEDICARE, SELFPAY | PROVIDERS: Visit Provider Radiology Diagnostic Ultrasound | DX: R09.A2 Foreign body sensation, throat (principal) | CPT/HCPCS: 74230 ==

== ENCOUNTER 2025-09-01 10:11 | Outpatient (AMB) | payer MEDICARE, SELFPAY ==
[2025-09-01 10:13] VITALS: BP 122/74; PULSE 76; TEMP 36.4; O2SAT 97; BMI 24.8
--- NOTE | 2025-09-01 10:13 | A.OFFPC_ITS ---
Vital Signs 09/01/25 10:13 Height 5 ft 11 in Weight 178 lb BMI 24.8 BP 122/74 Blood Pressure Location Rt brachial Position Sitting Pulse 76 Pulse Source Pulse Oximeter Temp 97.5 F Temp Source Temporal Artery Scan Pulse Oximetry (%) 97 Oxygen Delivery Method Room Air Intake Visit Reasons: 3 month f/u Electric Refrigerator Servicer Required: No Accompanied by: Self / Same As Patient Allergies No Known Allergies Allergy (Verified 09/01/25 10:14) Medication List - Last Reconciled 09/01/25 by Luis Carlos Beatty MD amlodipine 5 mg PO BEDTIME ascorbic acid (vitamin C) 100 mg PO DAILY pantoprazole 40 mg PO DAILY zinc gluconate 50 mg PO DAILY Tobacco use date assessed: 09/01/25 Fall risk assessment: No Falls in past year Last assessed Fall Risk: 09/01/25 Dental Screening Dental Screen Date: 09/01/25 Did you have a dental visit in the last 12 months?: Yes Did you have a dental problem in the last 6 months where you did not have access to dental care?: No HPI HPI Comments History of Present Illness Details The patient is an 89-year-old male presenting for a follow-up and to discuss his overall health. He is experiencing significant grief following the of his of 66 years last month. He reports doing well until he has to talk about her. 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 She had become incapacitated and weighed 94 pounds before passing. He has family support available. The patient has a history of hiatal hernia repair and experiences acid reflux, which has improved with pantoprazole. He also reports episodes of watery diarrhea, which have become less frequent since starting pantoprazole. He notes occasional dysphagia, specifically with dense meats. A previous aspiration scan was normal. His medical history is notable for hypertension, managed with amlodipine. Recent labs showed a cholesterol level of 107 and low vitamin D levels, for which he has started taking iron, although vitamin D was mentioned as low. He also complains of some gait instability, which he describes as feeling a little wobbly. Medical History: - Hypertension - Hypercholesterolemia - Vitamin D deficiency - Gastroesophageal reflux disease (GERD) - Dysphagia - Diarrhea - Gait instability - Bereavement Surgical History: - Hiatal hernia repair Medications: - Iron pills - Amlodipine 5 mg once a day for hyperte nsion - Vitamin C - Pantoprazole for acid reflux secondary to hiatal hernia - Zinc Diagnostic Results: - Labs: Previous blood work was noted as clean and good, with good electrolytes. - Labs: Cholesterol level is slightly el evated at 107. - Labs: Vitamin D level is low. - Tests and Diagnostics: Aspiration scan was normal. Social History: - The patient recently lost his of 66 years and is experiencing grief. - He has family support nearby. - Functional status: The patient reports feeling generally healthy but notes some age-related unsteadiness when walking. [facility] Medical History (Updated 09/01/25 @ 10:37 by Luis Carlos Beatty MD) Bereavement Ataxic gait BPH (benign prostatic hyperplasia) Irritable bowel syndrome with diarrhea Hyperlipidemia Hiatal hernia Hypertension Family History (Updated 09/01/25 @ 10:20 by Barbara Hinton MA) Mother No problems noted. Father No problems noted. Social History Housing: House Patient Tobacco Use Status: Former Tobacco user Tobacco use type: Cigarette e-Cigarette/Vaping Use: Former Use service: No Current occupational status: retired Cognitive needs: No Hearing needs: No Vision needs: Yes (reading glasses) Questionnaire Thrive Questionnaire Date Thrive assessed: 06/02/25 VINITA-7 AMB Questionnaire VINITA-7 Date VINITA - 7 assessed: 06/02/25 Source: Developed by Drs. Harpal Interiano, Trina Woo, Jamie Roland and colleagues, with an educational efrain from [employer]. Review of Systems Narrative - General: Reports feeling healthy but also is experiencing grief after the recent loss of his . - HEENT/Mouth/Throat: Reports dysphagia described as dense meats stopping on the way down. - Gastrointestinal: Reports acid reflux, which is improving with medication. - Gastrointestinal: Reports episodes of watery diarrhea, which have decreased in frequency. - Neurological: Reports feeling a little wobbly at times. - Constitutional: Denies any change in weight. All systems reviewed & are unremarkable except as reviewed in HPI and above Physical exam (Primary Care) Vital Signs: Last Vital Signs Temp 97.5 F 09/01/25 10:13 Pulse 76 09/01/25 10:13 BP 122/74 09/01/25 10:13 Pulse Ox 97 09/01/25 10:13 Oxygen Delivery Method Room Air 09/01/25 10:13 BMI result Body Mass Index 24.8 Tobacco/Smoking Status: Tobacco use Status Tobacco use date assessed 09/01/25 09/01/25 10:20 Patient Tobacco Use Status Former Tobacco user 09/01/25 10:13 Tobacco use type Cigarette 09/01/25 10:13 e-Cigarette/Vaping Use Former Use 09/01/25 10:20 Thrive Assessment: Date of Thrive Assessment Date Thrive assessed 06/02/25 09/01/25 10:13 Narrative General: Alert and oriented, Well nourished, No acute distress. Eye: Pupils are equal, round and reactive to light, Intact accommodation, Extraocular movements are intact, Normal conjunctiva, Vision unchanged. HENT: Normocephalic, Atraumatic, Tympanic membranes are clear, Normal hearing, Oral mucosa is moist, No pharyngeal erythema, Ear canals patent. Respiratory: Lungs CTA bilaterally, No wheeze, Respirations are non-labored. Cardiovascular: Regular rate, Regular rhythm, S1 auscultated, S2 auscultated, No murmur, Good pulses equal in all extremities, Normal peripheral perfusion, No edema. Gastrointestinal: Soft, Non-tender, Non-distended, Normal bowel sounds, No organomegaly. Musculoskeletal: Normal range of motion, Normal strength, No tenderness, No swelling, No deformity, Normal gait. Integumentary: Warm, Dry, M[place], Intact. Neurologic: Alert, Oriented, Normal sensory, Normal motor function, No focal defects, Cranial Nerves II-XII are grossly intact, Normal deep tendon reflexes. Psychiatric: Cooperative, Appropriate mood & affect, Normal judgment, Grieving loss of spouse. Coding Level of Care Code Est Pt Level 4 (86464) Add On Problem Visit Only Diagnoses Bereavement Z63.4 Hiatal hernia K44.9 Hypertension, unspecified type I10 Hypertension type: unspecified Hyperlipidemia, unspecified hyperlipidemia type E78.5 Hyperlipidemia type: unspecified Ataxic gait R26.0 Assessment & Plan Assessment & Plan (1) Bereavement: Comment: - The patient is grieving the recent loss of his of 66 years. - He has family support. - Reassurance was provided. - The plan is to continue to provide emotional support and to monitor his well- being. Code(s): Z63.4 - Disappearance and of family member Category: Social Hx (2) Hiatal hernia: Comment: - The patient has a history of hiatal hernia repair. - His GERD symptoms have improved on pantoprazole. - He reports intermittent dysphagia with dense meats. - An upcoming gastroenterology appointment on the is scheduled. - He was encouraged to discuss these symptoms, as an endoscopy may be warranted to evaluate for a possible stricture. Code(s): K44.9 - Diaphragmatic hernia without obstruction or gangrene Category: Medical (3) Hypertension: Comment: - The patient's blood pressure is well-controlled at 122/74 mmHg on amlodipine. - No changes to the medication regimen at this time. - Continue current management. Code(s): I10 - Essential (primary) hypertension Category: Medical Qualifiers: Hypertension type: unspecified Qualified Code(s): I10 - Essential (primary) hypertension (4) Hyperlipidemia: Comment: - Labs show a cholesterol of 107, which is not currently concerning, and low vitamin D. He has started taking iron pills. - Continue monitoring. 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 - Advised to be more cognizant and careful when walking to prevent falls. Code(s): R26.0 - Ataxic gait Category: Medical Plan: Health Maintenance: - Follow-up with Gastroenterology is scheduled for the to discuss GERD/dysphagia symptoms post-hiatal hernia repair. - Encouraged to focus on self-care and staying active. - General follow-up scheduled in six months. - Advised to take pantoprazole on an empty stomach for improved effectiveness. - Advised to be mindful while walking due to age-related unsteadiness. Plan I began the visit by offering my condolences for the recent passing of his of 66 years. I acknowledged his grief as a normal response and assured him of our support. We reviewed his current health status, noting that his blood pressure is well- controlled and his previous labs are reassuring, apart from a slightly elevated cholesterol of 107 and low vitamin D. I addressed his concern about abdominal fat, explaining it is a common pattern of fat distribution and not a concern given his stable weight and good BMI. We discussed his symptoms of acid reflux and occasional diarrhea, noting improvement with pantoprazole. I refilled his prescription and advised him to take it on an empty stomach for better results. We discussed his upcoming gastroenterology appointment in detail. I advised him to mention the episodes of dysphagia with dense meats, as this could indicate a stricture from his prior hiatal hernia surgery and may warrant an endoscopic evaluation. I also explained what a 'wobbly' gait is an age-related change and advised him to be more cautious. I recommended he focus on his own well-being and scheduled a follow-up in six months, after the winter. Medications: Refilled pantoprazole 40 mg PO DAILY 90 tabs 0RF K44.9 - Diaphragmatic hernia without obstruction or gangrene Patient Instructions: - Continue taking your medications as prescribed, including amlodipine for blood pressure. - Take your pantoprazole medication for acid reflux on an empty stomach in the morning before you eat anything. We have sent a refill to your pharmacy. - Be careful and mindful when you are walking, as it is normal to feel a bit wobbly at times as we age. - Keep your appointment with the stomach specialist (hot plate plywood press feeder) on the . - Make sure to tell the specialist that you sometimes have trouble with dense m eats getting stuck when you swallow. - Try to pay attention to your diet to see if any specific foods are causing your diarrhea. - We are here for you if you need anything. Please focus on taking care of yourself. - We will see you back in the office in about six months.
== END 2025-09-01 10:33 | disposition home or self-care (01) ==
LOC: HO.HMCHD 10:11
PROVIDERS: PCP Family Medicine; Visit Provider Student in an Organized Health Care Education/Training Program
DX: Z63.4 Disappearance and death of family member (principal); K44.9 Diaphragmatic hernia without obstruction or gangrene; I10 Essential (primary) hypertension; E78.5 Hyperlipidemia, unspecified; R26.0 Ataxic gait

== ENCOUNTER → 2025-09-01 10:11 | Outpatient (BNVA) | payer MEDICARE, SELFPAY | PROVIDERS: PCP Family Medicine; Visit Provider Student in an Organized Health Care Education/Training Program | DX: I10 Essential (primary) hypertension (principal); E78.5 Hyperlipidemia, unspecified; R26.0 Ataxic gait; K21.9 Gastro-esophageal reflux disease without esophagitis; E55.9 Vitamin D deficiency, unspecified; R13.10 Dysphagia, unspecified; R26.89 Other abnormalities of gait and mobility; Z79.899 Other long term (current) drug therapy; Z63.4 Disappearance and death of family member; Z87.19 Personal history of other diseases of the digestive system | CPT/HCPCS: 99212 ==

== ENCOUNTER 2025-09-07 10:14 | Outpatient (AMB) | payer MEDICARE, SELFPAY ==
--- NOTE | 2025-09-07 10:19 | MHC.OFFVIS ---
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 Pt states that his sx have improved with the pantoprazole. He does occasionally have some excessive gas but denies any other sx. Business Analyst Consultant Required: No Accompanied by: Self / Same As Patient Allergies No Known Allergies Allergy (Verified 09/01/25 10:14) HPI HPI diaphragmatic hernia / dysphagia: Details: 89-year-old male with past medical history of hypertension, GERD, BPH, hyperlipidemia, history of hiatal hernia and diaphragmatic hernia repair in 2019 is here today for initial consultation. Patient was diagnosed with hiatal hernia 1991 that eventually needed to get repaired after projectile vomiting in 2019. Patient had x-ray that prompted PCP to send him for surgical repair of his hernia. Patient reports that his surgeon was done and [facility]. Patient reports that in the past few months he was experiencing trouble swallowing and globus sensation. Patient had barium swallow that show laryngeal penetration and aspiration after 3rd swallow. Patient was sent for modified barium swallow with speech therapy. Patient was able to swallow without any issues. Since then patient has been taking pantoprazole and his symptoms have suppressed. Patient reports that only with steak if he does not chew correctly feels like it is going down slower and usually happens in distal esophagus. When reviewed patient's barium swallow no narrowing, no achalasia or Schatzki ring seen. [facility] Medical History Bereavement Ataxic gait BPH (benign prostatic hyperplasia) Irritable bowel syndrome with diarrhea Hyperlipidemia Hiatal hernia Hypertension Family History Mother No problems noted. Father No problems noted. Social History Housing: House Patient Tobacco Use Status: Former Tobacco user Tobacco use type: Cigarette e-Cigarette/Vaping Use: Former Use service: No Current occupational status: retired Cognitive needs: No Hearing needs: No Vision needs: Yes (reading glasses) Review of Systems Const Denies weight gain and Denies weight loss ENT Reports no additional complaints, Reports dysphagia (Occasional) and Denies odynophagia Card Reports no additional complaints Resp Reports no additional complaints GI Denies abdominal pain, Denies belching, Denies melena, Reports bloating, Denies change in bowel habits, Reports dysphagia (Occasional), Denies excessive flatus, Denies dyspepsia, Reports heartburn (Occasional), Denies diarrhea, Denies loose stools, Denies nausea, Denies odynophagia and Denies vomiting Reports no additional complaints Musc Reports no additional complaints Neuro Reports no additional complaints Psych Reports no additional complaints Endo Reports no additional complaints Physical Exam Vital Signs: Last Vital Signs Pulse 68 09/07/25 10:28 BP 120/78 09/07/25 10:28 Pulse Ox 98 09/07/25 10:28 Oxygen Delivery Method Room Air 09/07/25 10:28 BMI result Body Mass Index 24.3 Const General: healthy appearing, no acute distress and well developed Nutritional Appearance: well nourished Orientation/consciousness: patient oriented x3 Resp Effort & Inspection: normal respiratory effort, able to speak in complete sentences, no tracheal deviation and symmetric chest movement Auscultation: clear to auscultation bilaterally Cardio Rate: regular rate GI Inspection: Yes normal to inspection and No distended Palpation (GI): Soft to palpation, not firm, nontender and No hepatosplenomegaly present Auscultation: normal bowel sounds Skin General skin exam: elasticity normal, turgor normal and dry skin Neuro General: patient oriented x3 Psych Appearance: grossly normal Mental Status: mental status grossly normal Results Reviewed Results Reviewed: Intake Recommendations: Route: PO Diet Grade: Regular Liquid Consistencies: Thin Post-Study Functional Oral Intake Scale (FOIS): 7- Total oral intake with no restrictions No evidence of aspiration or penetration. Good pharyngeal clearance. Suggested Referrals: The patient might benefit from a referral to: Gastroenterology Indication for Referral: Hx GERD, c/o globus sensation, MBSS showing no significant pharyngeal residue to be causing this symptom Therapy Recommendations: Speech Therapy is not indicated at this time, as oral and pharyngeal phase of the swallow appear to be functional based on observations made with this exam. Due to previous aspiration event, patient is recommended to take precautions with oral intake: take small bites/sips, one bite/sip at a time, eat/drink with a slow pace, ensure upright 90 degree position when eating/drinking. Clinician - Supplemental, Miscellaneous Communication: It is important to note MBSS objective studies are snapshots in time and Patient function might vary with factors such as time of day or concomitant medical conditions. For this reason, the final treatment plan for this patient should rest with their medical care team. Additional recommendations should be considered with the totality of the Patient in mind. Assessment & Plan Assessment & Plan (1) Globus sensation: Code(s): R09.A2 - Foreign body sensation, throat Category: Medical (2) Irritable bowel syndrome with diarrhea: Code(s): K58.0 - Irritable bowel syndrome with diarrhea Category: Medical (3) Hiatal hernia: Code(s): K44.9 - Diaphragmatic hernia without obstruction or gangrene Category: Medical (4) Dysphagia: Code(s): R13.10 - Dysphagia, unspecified Qualifiers: Dysphagia type: esophageal phase Qualified Code(s): R13.19 - Other dysphagia Plan We have discussed with patient possibility of going for upper endoscopy, however he is feeling better. I have reviewed barium swallow and there is no achalasia, narrowing or Schatzki ring seen. At this time patient reports that only happens if he does not chew his meat like before pork. Patient reports that he would like to wait and see if he will get better when he pays attention and takes his medication regularly. Continue taking for some pantoprazole daily. Avoid dietary triggers and late night snacking. Staying upright for minimum 3 hours after meals discussed with patient. Patient will call us if he will have trouble swallowing or develop any additional GI concerning symptoms. Follow-up in 3 months, sooner on as needed basis. Patient is agreeable to current plan of care and verbalizes understanding of instructions. He was given the opportunity to ask questions and all questions answered. Thank you for allowing me to participate in his care Coding Level of Care Code New Pt Level 4 (38214) Diagnoses Globus sensation R09.A2 Irritable bowel syndrome with diarrhea K58.0 Hiatal hernia K44.9 Esophageal dysphagia R13.19 Dysphagia type: esophageal phase Time Spent (min) 50 Comment 35 minutes spent with patient and additional 15 minutes spent reviewing his records
[2025-09-07 10:28] VITALS: BP 120/78; PULSE 68; O2SAT 98; BMI 24.3
--- OUTSIDE RECORDS SUMMARY | 2025-09-07 12:42 | XMS_ITS | Clinical Summary ---
Author Organization [facility] Address [address] [place] [address] Care Team Providers Care Fourchette Sewer Name Role Phone Farrukh Goode MD Primary Care Provider [phone] Allergies No known active allergies Medications PREVNAR [...] Influenza Vaccine 04/23/2025 COVID-19 Vaccine (1 - 2024-2 6 season) 2025 Hepatitis B Vaccines Aged Out No long er eligible based on patient's age to complete this topic Insurance MEDICARE PART A & B [place] [id number] Care Teams Fourchette Sewer Relationship Specialty Start Date End Date Farrukh Goode MD PCP - General 09/03/16
--- OUTSIDE RECORDS SUMMARY | 2025-09-07 12:42 | XMS_ITS | Encounter Summary ---
Author Organization [facility] Address [address] [place] [id number] Phone Care Team Providers Care Hot Saw Helper Name Role Phone Eric Mohan MD Unavailable Nick Terrell MD Unavailable Eric Mohan MD Primary Care Provider Mahendra Alvarado MD Unavailable Encounter Details Date Type Department Care Team (Late st Contact Info) Description 02/18/2019 Procedure [place] [facility] [place] [facility] [address] [place] [id number] Social History Tobacco Use Types Packs/Day Years [...] on filedocumented in this encounter Care Teams Hot Saw Helper Relationship Specialty Start Date End Date Eric Mohan MD [address] [place] [address] [place] [id number] PCP - General Internal Medicine 12/22/18 Eric Mohan MD [address] [place] [address] [place] [id number] Internal Medicine 12/17/18 Nick Terrell MD [address] [place] [address] [place] [address] Cardiology 12/17/18 Mahendra Alvarado MD [address] [place] [id number] [email or web address] Gastroenterology 01/27/19 documented as of this encounter Additional Source Comments The information contained in this document represents components of the legal health record. It is not the complete legal health record.[facility]
--- OUTSIDE RECORDS SUMMARY | 2025-09-07 12:42 | XMS_ITS | Patient Health Record ---
Author Organization [facility] Address [address] [facility] [place] [address] Care Team Providers Care Tractor Driver Teamster Name Role Phone Eric Mohan MD Primary Care Provider Unavailab [place] Unavailable [phone] Reason For Referral No Information Medications Medication [...] Status Risk Notes Problem Acquired hallux valgus (19623401) Hallux valgus (acquired), left foot (M20.12) Active confirmed Problem Acquired hallux valgus ([id number]) Hallux valgus (acquired), right foot (M20.11) Active confirmed Plan Of Treatment No Information Insurance Providers Payer Name Payer Address Payer Phone Subscriber Number Group Number Insured Name Patient Relationship to Insured Coverage Start Date Coverage End Date Medicare National [employer] [address] [place] [address] [id number] David Tran Self - patient is the insured [facility] [address] [place] [id number] 3 Counter, David Self - patient is the insured Medical (General) History Medical History History ICD Code Cataracts Gall bladder problems Gout Hiatal hernia Measles Mumps Chicken pox Transfusions Surgical History Surgery Date(Month/Year) Gall Bladder 06/2005 Esophageal 01/2019
--- OUTSIDE RECORDS SUMMARY | 2025-09-07 12:42 | XMS_ITS | Clinical Summary ---
Author Organization [facility] Address [address] [address] Phone Care Team Providers Care Brake Repairer Name Role Phone Eric Mohan MD Unavailable [...] Date/Time Associated Diagnosis Comments BASIC METABOLIC PANEL (BMP) Routine 02/19/2019 5:55 AM EDT from Last 3 Months or Most Recently Relevant to Health Maintenance Results * (ABNORMAL) Basic metabolic panel (02/19/2019 5:55 AM EDT) SODIUM 138 135 - 145 mmol/L [facility] POTASSIUM 4.7 3.4 - 5.0 mmol/L [facility] CHLORIDE 104 98 - 108 mmol/L [facility] CO2 22(L) 23 - 32 mmol/L [facility] BUN 15 8 - 25 mg/dL [facility] CREATININE 0.96 0.60 - 1.50 mg/dL [facility] GLUCOSE 112(H) 70 - 110 mg/dL [facility] CALCIUM 8.8 8.5 - 10.5 mg/dL [facility] EGFR 74 >59 mL/min/1. 73m2 [facility] Comment:If patient is black, multiply result by 1.159. Estimated glomerular filtration rate calculated using the CKD-EPI equation. ANION GAP 12 3 - 17 mmol/L [facility] Blood 02/19/2019 5:55 AM EDT 02/19/2019 6:02 AM EDT us Otto Clark MD, [place] LAB BLOOD BKR ORDERAB LES Final Result [facility] [address] [place] [address] from Last 3 Months or Most Recently Relevant to Health Maintenance Insurance MEDICARE PART A & B [facility] PPO EPO MEDICARE PART A & B [facility] PPO EPO MEDICARE PART A & B [facility] EPO MEDICARE PART A & B [facility] PPO [facility]PO MEDICARE PART A & B [facility] PPO EPO MEDICARE PART A & B [facility] PPO [facility]PO MEDICARE PART A & B [facility] PPO EPO MEDICARE PART A & B [facility] PPO EPO MEDICARE PART A & B [facility] PPO EPO Advance Directives For more information, please contact: [phone] (9AM - 5PM [facility], Saturday-Saturday) * Full Code (Presumed) (Latest Code Status on File) Date Activated Date Inactivated Comments 02/18/2019 11:07 AM 02/20/2019 3:57 PM Care Teams Brake Repairer Relationship Specialty Start Date End Date Eric Mohan MD [address] [place] [address] [place] [id number] PCP - General Internal Medicine 12/22/18 Eric Mohan MD [address] [place] [address] [place] [id number] Internal Medicine 12/17/18 Nick Terrell MD [address] [place] [address] [place] [id number] Cardiology 12/17/18 Mahendra Alvarado MD [address] [place] [id number] [email or web address] 01/27/19 Additional Source Comments The information contained in this document represents components of the legal health record. It is not the complete legal health record.[facility]
== END 2025-09-07 10:55 | disposition home or self-care (01) ==
LOC: HO.HGI 10:15
PROVIDERS: PCP Family Medicine; Visit Provider Nurse Practitioner Family
DX: R09.A2 Foreign body sensation, throat (principal); K58.0 Irritable bowel syndrome with diarrhea; K44.9 Diaphragmatic hernia without obstruction or gangrene; R13.19 Other dysphagia
CPT/HCPCS: 99204

== ENCOUNTER → 2025-09-07 10:14 | Outpatient (BNVA) | payer MEDICARE, SELFPAY | PROVIDERS: PCP Family Medicine; Visit Provider Nurse Practitioner Family | DX: R09.A2 Foreign body sensation, throat (principal); K44.9 Diaphragmatic hernia without obstruction or gangrene; R13.19 Other dysphagia; K58.0 Irritable bowel syndrome with diarrhea; Z79.899 Other long term (current) drug therapy; Z87.891 Personal history of nicotine dependence | CPT/HCPCS: 99202 ==